=== PATIENT | male | born 1935 | race Caucasian/White ===

== ENCOUNTER → 2016-10-18 | Outpatient (REF) | payer MEDICARE ==
[2016-10-18 11:48] LABS: MEAN CORPUSCULAR HEMOGLOBIN 33.4 pg (27.0-33.0); MEAN CORPUSCULAR HGB CONC 33.4 g/dl (32.0-36.5); MEAN CORPUSCULAR VOLUME 99.9 fl (80.0-96.0)
[2016-10-18 11:54] LABS: ALBUMIN 3.7 GM/DL (3.2-5.2); ALBUMIN/GLOBULIN RATIO 1.09 (1.00-1.93); BILIRUBIN,TOTAL 0.4 MG/DL (0.2-1.0); CALCIUM LEVEL 8.5 MG/DL (8.8-10.2); CREATININE FOR GFR 1.38 MG/DL (0.70-1.30); GLOMERULAR FILTRATION RATE 52.5 (>35); POTASSIUM SERUM 4.4 MEQ/L (3.5-5.1); TOTAL PROTEIN 7.1 GM/DL (6.4-8.2)
== END ==
LOC: M SFHCCLAY 08:12
PROVIDERS: ATTEND Nurse Practitioner Family
DX: E11.22 Type 2 diabetes mellitus with diabetic chronic kidney disease (principal); I10 Essential (primary) hypertension; E78.4 Other hyperlipidemia; E55.9 Vitamin D deficiency, unspecified

== ENCOUNTER 2017-02-15 07:15 | Day surgery (SDC) | payer MEDICARE ==
[~2017-02-15] VITALS: Ht 162.6 cm; Wt 87.1 kg
[~2017-02-15 07:15] MED LIST: ASPI81TA85 PO; FURO40TA2 PO; LOSA100T36 PO; METO1TAB87 PO; MIDAZOLAM INJ 2 MG/2 ML VIAL (J2250) As Ordered ONE; SIMV40TA2 PO; fentaNYL 100 MCG/2 ML INJECTION (J3010) As Ordered ONE
[2017-02-15] MEDS ORDERED: LR 500 ML IV SCH (07:30)
[2017-02-15] MEDS ORDERED: PROPARACAINE 0.5% OPHTH SOL 15ML OD ONE (08:00)
[2017-02-15] MEDS ORDERED: OFLOXACIN 0.3 % (OCUFLOX) OPTH SOL 5ML OD ONE (08:00)
[2017-02-15] MEDS ORDERED: PHENYLEPHRINE 2.5% OPHTH SOL 2ML OD ONE (08:00)
[2017-02-15] MEDS ORDERED: TROPICAMIDE 1% OPHTH SOLN 2ML OD ONE (08:00)
[2017-02-15] MEDS ORDERED: DUOVISC (0.50ML VISCOAT/0.55ML PROVISC) OPHTH KIT As Ordered ONE (08:31)
[2017-02-15] MEDS ORDERED: CEFUROXIME 1MG/0.1ML INTRACAMERAL INJ As Ordered ONE (08:31)
[2017-02-15] MEDS ORDERED: BALANCED SALT IRRIGATION SOLUTION 500ML BAG (FOR OR EYE MACHINE) As Ordered ONE (08:31)
[2017-02-15] MEDS ORDERED: POVIDONE-IODINE 5% OPHTH PREP SOL 30ML As Ordered ONE (08:31)
[2017-02-15] MEDS ORDERED: LIDOCAINE 0.75%/EPINEPHRINE 0.025% IN BSS 1ML SYR INTRACAMERAL (OR ONLY) As Ordered ONE (08:31)
[2017-02-15] MEDS ORDERED: ACETYLCHOLINE OPHTH SOLN 1% 2ML (MIOCHOL-E) As Ordered ONE (08:31)
[2017-02-15] MEDS ORDERED: TETRACAINE 0.5% OPHTH SOLN 4ML As Ordered ONE (08:38)
[2017-02-15 09:20] VITALS: BP 141/65
[2017-02-15] MEDS ORDERED: ACETAMINOPHEN TAB 650MG DOSE (2X325MG) PO PRN (09:30)
[2017-02-15] MEDS ORDERED: LR 1,000 ML IV SCH (09:30)
--- NOTE | 2017-02-16 15:04 | RO ---
DATE OF PROCEDURE: 02/15/2017 PREOPERATIVE DIAGNOSES: 1. Dense visually significant nuclear sclerotic catarac, right eye. 2. Small pupil, right eye. POSTOPERATIVE DIAGNOSES: 1. Dense visually significant nuclear sclerotic cataract, right eye. 2. Small pupil, right eye. 3. Intraoperative floppy iris syndrome, right eye. 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 POSTOPERATIVE CONDITION: Stable. INDICATION FOR SURGERY: Blurred vision right eye affecting patient's activities of daily living. DESCRIPTION OF PROCEDURE: The patient was seen in the preoperative area and properly identified. The correct operative eye was identified and marked. Attention was turned to that eye. The patient received optical antibiotics in the preoperative area. The patient then received topical dilating drops consisting of tropicamide and phenylephrine. The patient was then transferred to the operating room. The correct side was reidentified. The patient received topical anesthetics and antibiotics on the surface of the eye. The eye was prepped and draped in a sterile fashion. The upper and lower eyelids were isolated with Tegaderm tape, and the lids were held open with an adjustable speculum. Using a sideport blade, a paracentesis incision was made. Viscoelastic was then injected into the anterior chamber through the paracentesis. A 7mm Malyugin ring was placed. A continuous curvilinear capsulorrhexis was created with the aid of a 26-gauge cystotome and Utrata forceps. Hydrodissection was performed with BSS on a blunt cannula until the nucleus was freely mobile. The crystalline lens was phacoemulsified and aspirated. Additional cohesive viscoelastic was placed into the capsular bag to deepen it. AU00T0, 20.0 lens was placed into the capsular bag and confirmed by visualizing the continuous curvilinear capsulorrhexis. Additional irrigation and aspiration was used to remove cortical material. The Malyugin ring was removed from the eye, and irrigation and aspiration was then used removing the remaining viscoelastic. The Malyugin ring was removed. The clear corneal incision was hydrated with BSS on a blunt cannula. The lens was well positioned. The incisions were then tested for leaks and found to be negative. The eye was then palpated for appropriate pressure and adjusted accordingly with BSS. Several drops of antibiotics and Iopidine were placed in the eye. The eyelid speculum was then carefully removed. A shield was placed. The patient tolerated the procedure well and was discharged to the recovery unit in a stable condition. MARGIE
== END 2017-02-15 09:43 | disposition home or self-care (01) ==
LOC: M SDC 07:15
PROVIDERS: ATTEND Ophthalmology
DX: H25.11 Age-related nuclear cataract, right eye (principal); H21.81 Floppy iris syndrome; H21.561 Pupillary abnormality, right eye; I10 Essential (primary) hypertension; E78.5 Hyperlipidemia, unspecified; Z79.82 Long term (current) use of aspirin; Z88.8 Allergy status to other drugs, medicaments and biological substances; Z79.899 Other long term (current) drug therapy; Z87.891 Personal history of nicotine dependence
CPT/HCPCS: 66982; J2250; J3010; V2632

== ENCOUNTER → 2017-04-17 | Outpatient (REF) | payer MEDICARE ==
[~2017-04-17] MED LIST changes: -MIDAZOLAM INJ 2 MG/2 ML VIAL (J2250) As Ordered ONE; -fentaNYL 100 MCG/2 ML INJECTION (J3010) As Ordered ONE
== END ==
LOC: M SFHCCLAY 08:02
PROVIDERS: ATTEND Nurse Practitioner Family
DX: E78.4 Other hyperlipidemia (principal); E11.22 Type 2 diabetes mellitus with diabetic chronic kidney disease

== ENCOUNTER → 2017-12-14 | Outpatient (REF) | payer MEDICARE | LOC: M SFHCCLAY 12:46 | DX: K65.1 Peritoneal abscess (principal) | CPT/HCPCS: 87186 ==

== ENCOUNTER → 2018-02-28 | Outpatient (CLI) | payer MEDICARE | LOC: M CLY 08:47 | DX: M41.26 Other idiopathic scoliosis, lumbar region (principal); M51.36 Other intervertebral disc degeneration, lumbar region; M16.11 Unilateral primary osteoarthritis, right hip; M54.5 Low back pain; M25.551 Pain in right hip | CPT/HCPCS: 72114 ==

== ENCOUNTER → 2018-04-08 | Outpatient (REF) | payer MEDICARE ==
[2018-04-08 17:53] LABS: ALBUMIN 4.1 GM/DL (3.2-5.2); ANION GAP 6 MEQ/L (8-16); BLOOD UREA NITROGEN 28 MG/DL (7-18); CARBON DIOXIDE LEVEL 32 MEQ/L (21-32); CHLORIDE LEVEL 102 MEQ/L (98-107); CHOLESTEROL LEVEL 163 MG/DL (<200); CHOLESTEROL RISK RATIO 2.232 (<5); CREATININE FOR GFR 1.81 MG/DL (0.70-1.30); GLOMERULAR FILTRATION RATE 38.3 (>35); GLUCOSE, FASTING 116 MG/DL (70-100); HDL CHOLESTEROL 73 MG/DL (>40); LDL CHOLESTEROL 74 MG/DL (<100); NON-HDL-C 90 MG/DL; PHOSPHORUS LEVEL 3.4 MG/DL (2.5-4.9); POTASSIUM SERUM 4.3 MEQ/L (3.5-5.1); SODIUM LEVEL 140 MEQ/L (136-145); TRIGLYCERIDES LEVEL 82 MG/DL (<150)
[2018-04-08 18:04] LABS: TOTAL 25(OH) VITAMIN D 40.2 NG/ML (30.0-100.0)
[2018-04-08 18:23] LABS: ESTIMATED AVERAGE GLUCOSE 120 MG/DL (60-110); HEMOGLOBIN A1c 5.8 %
== END ==
LOC: M SFHCCLAY 10:01
DX: E11.22 Type 2 diabetes mellitus with diabetic chronic kidney disease (principal); E78.49 Other hyperlipidemia; N18.9 Chronic kidney disease, unspecified; E55.9 Vitamin D deficiency, unspecified
CPT/HCPCS: 80069

== ENCOUNTER → 2018-04-09 | Outpatient (CLI) | payer MEDICARE ==
[~2018-04-09] MED LIST changes: +LOSA-4 PO; -LOSA100T36 PO
--- NOTE | 2018-04-10 09:02 | REP ---
MRI lumbar spine without contrast: History: Ankylosing hyperostosis. Forestier disease. DISH. Comparison lumbar spine radiographs are from February 28, 2018. Technique: Sagittal and axial T1 and T2-weighted scans are acquired in the usual fashion with and without fat saturation. Sequences include spin echo, turbo spin-echo, and STIR imaging sequences. MRI findings: Lumbar vertebral body heights are preserved. There is some straightening. A dextroconvex curvature is seen. There is a hemangioma on the right side of the L1 vertebral body. There are marrow changes associated with degenerative disc disease on either side of the L2-3 disc. Cortical and medullary bone signal intensity are otherwise normal. Conus medullaris is normal in position and appearance at T12. No extravertebral abnormality is observed. Axial and sagittal images taken at the L1-2 disc level demonstrate mild diffuse disc bulging. No central canal stenosis or neural foraminal encroachment. At L2-3, there is moderate diffuse disc bulging effacing the ventral margin of the thecal sac and contributing to mild central canal stenosis along with developmentally short pedicles and mild ligamentum flavum hypertrophy. Midline AP dimension of the thecal sac at this level is 10 mm. The thecal sac has a slightly triangular configuration. No neural foraminal narrowing. At L3-4, there is also diffuse mild to moderate disc bulging effacing the ventral margin of the thecal sac. There is central canal stenosis mild in degree at this level as well. Mid sagittal AP dimension of the thecal sac is 9 mm. There is facet hypertrophy and mild ligamentum hypertrophy along with developmentally short pedicles. There is mild narrowing of the neural foramina bilaterally. At L4-5, there is moderate diffuse disc bulging. There is moderate central canal stenosis effacing the CSF signal intensity on T2-weighted scans within the thecal sac. Mid sagittal dimension of the thecal sac is 6.7 mm at this level in the midline. There is advanced facet hypertrophy and ligamentum flavum hypertrophy contributing to the spinal stenosis along with developmentally short pedicles. There is moderate left and minimal right-sided neural foraminal narrowing at L4-5. At L5-S1, there is moderate facet hypertrophy bilaterally, right more so than left. The right-sided facet hypertrophy produces compression of the right S1 nerve root as it leaves the thecal sac. The left-sided neural foramen shows no encroachment. Impression: Fairly advanced degenerative spondylosis. Multilevel central canal stenosis most pronounced at L4-5. Multilevel neural foraminal narrowing as above. Electronically Signed by Shubham Petersen MD 04/10/2018 09:53 A
== END ==
LOC: M RAD 17:42
PROVIDERS: ATTEND Orthopaedic Surgery Sports Medicine
DX: M51.26 Other intervertebral disc displacement, lumbar region (principal); M48.07 Spinal stenosis, lumbosacral region; M53.88 Other specified dorsopathies, sacral and sacrococcygeal region; M48.17 Ankylosing hyperostosis [Forestier], lumbosacral region
CPT/HCPCS: 72148; G0463

== ENCOUNTER → 2018-05-28 | Outpatient (REF) | payer MEDICARE ==
[~2018-05-28] MED LIST changes: -LOSA-4 PO; +LOSA100T50 PO
[2018-05-28 17:37] LABS: COMPLEMENT C3 123 MG/DL (90-180); COMPLEMENT C4 24 MG/DL (10-40); TOTAL PROTEIN,RANDOM URINE 97.9 MG/DL (0.0-12.0); URINE TOTAL PROTEIN 97.9 MG/DL (0-12)
[2018-05-30 15:03] LABS: UPEP INTERPRETATION NO M-SPIKE NOTED; URINE VOLUME RANDOM ML
[2018-06-01 00:07] LABS: ANCA-ATYPICAL <1:20 titer (Neg:<1:20); ANTI DOUBLE STRAND-DNA AB <1 IU/mL (0-9); ANTI-GLOMERULAR BASEMENT MEMB 3 units (0-20); CYTOPLASMIC NEUTROP AB ANCA-C <1:20 titer (Neg:<1:20); PERINUCLEAR AB ANCA-P <1:20 titer (Neg:<1:20)
== END ==
LOC: M LAB REF 16:47
PROVIDERS: ATTEND Internal Medicine Nephrology
DX: R80.9 Proteinuria, unspecified (principal)

== ENCOUNTER → 2018-06-21 | Outpatient (CLI) | payer MEDICARE ==
--- NOTE | 2018-06-21 13:40 | REP ---
Renal ultrasound: Comparison is 01/11/2012. The right kidney measures 9.4 x 5.6 x 5.3 cm. The left kidney measures 10.0 x 5.5 x 6.0 cm. Renal cortical mg echogenicity is normal bilaterally. There is no hydronephrosis on the right on the left. There are is atheromatous calcification in the renal vessels versus nonobstructive calculi bilaterally. There are two right renal cysts in the upper pole, one measuring 1.4 cm and the other measuring 2.3 cm. There are two cysts in the left kidney one at the mid pole measuring 2.2 cm and the other at the lower pole measuring 1.9 cm. No solid renal masses are identified. Bladder ultrasound: The bladder is incompletely distended and cannot be further evaluated. Impression: There are two cysts in each kidney. There are bilateral renal calcifications, nonspecific, vascular atheromatous calcifications versus nonobstructive renal calculi. No hydronephrosis. No solid masses. Electronically Signed by Ezra Sanchez MD 06/21/2018 01:32 P
== END ==
LOC: M RAD 11:27
PROVIDERS: ATTEND Internal Medicine Nephrology
DX: N18.3 Chronic kidney disease, stage 3 (moderate) (principal)

== ENCOUNTER → 2018-07-09 | Outpatient (REF) | payer MEDICARE ==
[2018-07-09 17:36] LABS: MAU/CREAT RATIO 207.8 MCG/MG (0.0-30.0)
== END ==
LOC: M SFHCCLAY 13:19
PROVIDERS: ATTEND Nurse Practitioner Family
DX: E11.22 Type 2 diabetes mellitus with diabetic chronic kidney disease (principal)

== ENCOUNTER → 2018-11-28 | Outpatient (REF) | payer MEDICARE ==
[2018-11-28 18:34] LABS: FOLATE > 24.0 NG/ML (>5.4); VITAMIN B12 LEVEL 515 PG/ML (247-911)
== END ==
LOC: M LAB REF 17:22
PROVIDERS: ATTEND Nurse Practitioner Family
DX: D64.9 Anemia, unspecified (principal)

== ENCOUNTER → 2018-12-10 | Outpatient (REF) | payer MEDICARE ==
[2018-12-10 13:05] LABS: HEMATOCRIT 40.5 % (42.0-52.0); HEMOGLOBIN 13.5 g/dl (13.5-17.5); MEAN CORPUSCULAR HEMOGLOBIN 34.9 pg (27.0-33.0); MEAN CORPUSCULAR HGB CONC 33.3 g/dl (32.0-36.5); MEAN CORPUSCULAR VOLUME 104.7 fl (80.0-96.0); PLATELET COUNT, AUTOMATED 144 10^3/uL (150-450); RED BLOOD COUNT 3.87 10^6/uL (4.30-6.10); WHITE BLOOD COUNT 5.6 10^3/uL (4.0-10.0)
[2018-12-10 13:25] LABS: ALBUMIN 3.8 GM/DL (3.2-5.2); BILIRUBIN,TOTAL 0.6 MG/DL (0.2-1.0); CALCIUM LEVEL 8.4 MG/DL (8.8-10.2); CHOLESTEROL RISK RATIO 1.985 (<5); CREATININE FOR GFR 1.43 MG/DL (0.70-1.30); GLOMERULAR FILTRATION RATE 50.2 (>35); POTASSIUM SERUM 3.9 MEQ/L (3.5-5.1); TOTAL 25(OH) VITAMIN D 34.2 NG/ML (30.0-100.0)
[2018-12-10 13:44] LABS: HEMOGLOBIN A1c 5.7 %
== END ==
LOC: M SFHCCLAY 08:09
PROVIDERS: ATTEND Nurse Practitioner Family
DX: I10 Essential (primary) hypertension (principal); E11.22 Type 2 diabetes mellitus with diabetic chronic kidney disease; E78.49 Other hyperlipidemia; E55.9 Vitamin D deficiency, unspecified

== ENCOUNTER → 2019-03-14 | Outpatient (REF) | payer MEDICARE ==
[2019-03-14 16:54] LABS: HEMATOCRIT 42.3 % (42.0-52.0); HEMOGLOBIN 13.5 g/dl (13.5-17.5); MEAN CORPUSCULAR HEMOGLOBIN 32.8 pg (27.0-33.0); MEAN CORPUSCULAR HGB CONC 31.9 g/dl (32.0-36.5); MEAN CORPUSCULAR VOLUME 102.7 fl (80.0-96.0); PLATELET COUNT, AUTOMATED 201 10^3/uL (150-450); RED BLOOD COUNT 4.12 10^6/uL (4.30-6.10); WHITE BLOOD COUNT 5.5 10^3/uL (4.0-10.0)
[2019-03-14 16:57] LABS: CHOLESTEROL RISK RATIO 2.611 (<5)
[2019-03-14 17:05] LABS: TOTAL 25(OH) VITAMIN D 27.3 NG/ML (30.0-100.0)
[2019-03-14 17:26] LABS: CREATININE, URINE 20.4 MG/DL; MAU/CREAT RATIO 573.5 MCG/MG (0.0-30.0)
[2019-03-14 17:32] LABS: HEMOGLOBIN A1c 5.1 %
== END ==
LOC: M SFHCCLAY 12:59
PROVIDERS: ATTEND Nurse Practitioner Family
DX: E11.22 Type 2 diabetes mellitus with diabetic chronic kidney disease (principal); E78.49 Other hyperlipidemia; E55.9 Vitamin D deficiency, unspecified

== ENCOUNTER → 2019-07-15 | Outpatient (REF) | payer MEDICARE ==
[~2019-07-15] MED LIST changes: -SIMV40TA2 PO; +SIMV40TA20 PO
[2019-07-15 11:39] LABS: HEMATOCRIT 40.7 % (42.0-52.0); HEMOGLOBIN 13.2 g/dl (13.5-17.5); MEAN CORPUSCULAR HEMOGLOBIN 33.3 pg (27.0-33.0); MEAN CORPUSCULAR HGB CONC 32.4 g/dl (32.0-36.5); MEAN CORPUSCULAR VOLUME 102.8 fl (80.0-96.0); PLATELET COUNT, AUTOMATED 190 10^3/uL (150-450); RED BLOOD COUNT 3.96 10^6/uL (4.30-6.10); WHITE BLOOD COUNT 5.5 10^3/uL (4.0-10.0)
[2019-07-15 11:44] LABS: ALBUMIN 3.8 GM/DL (3.2-5.2); BILIRUBIN,TOTAL 0.6 MG/DL (0.2-1.0); CALCIUM LEVEL 8.9 MG/DL (8.8-10.2); CHOLESTEROL RISK RATIO 1.928 (<5); CREATININE FOR GFR 1.54 MG/DL (0.70-1.30); GLOMERULAR FILTRATION RATE 45.9 (>35); POTASSIUM SERUM 3.8 MEQ/L (3.5-5.1); TOTAL PROTEIN 7.5 GM/DL (6.4-8.2)
[2019-07-15 11:49] LABS: TOTAL 25(OH) VITAMIN D 38.7 NG/ML (30.0-100.0)
[2019-07-15 19:27] LABS: HEMOGLOBIN A1c 4.9 %
== END ==
LOC: M SFHCCLAY 09:07
PROVIDERS: ATTEND Nurse Practitioner Family
DX: I10 Essential (primary) hypertension (principal); E11.22 Type 2 diabetes mellitus with diabetic chronic kidney disease; E78.5 Hyperlipidemia, unspecified; E55.9 Vitamin D deficiency, unspecified; Z79.899 Other long term (current) drug therapy

== ENCOUNTER → 2020-05-25 | Outpatient (REF) | payer MEDICARE ==
[~2020-05-25] MED LIST changes: -ASPI81TA85 PO; +ASPI81TA86 PO
[2020-05-26 12:00] LABS: HEMATOCRIT 41.1 % (42.0-52.0); MEAN CORPUSCULAR HEMOGLOBIN 33.1 pg (27.0-33.0); MEAN CORPUSCULAR HGB CONC 31.6 g/dl (32.0-36.5); MEAN CORPUSCULAR VOLUME 104.6 fl (80.0-96.0); PLATELET COUNT, AUTOMATED 223 10^3/uL (150-450); RED BLOOD COUNT 3.93 10^6/uL (4.30-6.10); WHITE BLOOD COUNT 9.6 10^3/uL (4.0-10.0)
[2020-05-26 12:10] LABS: APPEARANCE, URINE CLOUDY (CLEAR); BACTERIA, URINE AUTO NEGATIVE (NEGATIVE); BILIRUBIN, URINE AUTO NEGATIVE (NEGATIVE); BLOOD, URINE BLOOD NEGATIVE (NEGATIVE); CALCIUM OXALATE CRYSTALS LARGE; COLOR, URINE YELLOW (YELLOW); GLUCOSE, URINE (UA) AUTO NEGATIVE (NEGATIVE); GRANULAR CAST, URINE AUTO 4 /LPF; KETONE, URINE AUTO TRACE mg/dL (NEGATIVE); LEUKOCYTE ESTERASE, URINE AUTO 1+ (NEGATIVE); MUCUS, URINE SMALL (NEGATIVE); NITRITE, URINE AUTO NEGATIVE (NEGATIVE); PROTEIN, URINE AUTO 2+ mg/dL (NEGATIVE); RBC, URINE AUTO 4 /HPF (0-3); SPECIFIC GRAVITY URINE AUTO 1.019 (1.002-1.035); SQUAMOUS EPITHELIAL CELL UR AU 0 /HPF (0-6); WBC, URINE AUTO 87 /HPF (0-3)
[2020-05-26 12:30] LABS: CALCIUM LEVEL 9.4 MG/DL (8.8-10.2); CREATININE FOR GFR 2.29 MG/DL (0.70-1.30); PHOSPHORUS LEVEL 3.5 MG/DL (2.5-4.9); POTASSIUM SERUM 4.8 MEQ/L (3.5-5.1)
[2020-05-26 13:02] LABS: MAU/CREAT RATIO 211.6 MCG/MG (0.0-30.0)
== END ==
LOC: M LABDRAWC 11:19
PROVIDERS: ATTEND Nurse Practitioner Family
DX: N18.32 Chronic kidney disease, stage 3b (principal); D63.1 Anemia in chronic kidney disease; N25.81 Secondary hyperparathyroidism of renal origin; E11.22 Type 2 diabetes mellitus with diabetic chronic kidney disease

== ENCOUNTER 2020-06-21 15:21 | Inpatient (IN) | payer MEDICARE ==
[~2020-06-21] VITALS: Ht 167.6 cm; Wt 73.7 kg
--- NOTE | 2020-06-21 16:18 | REP ---
INDICATION: trauma. COMPARISON: None. TECHNIQUE: Helical scanning is acquired. 5 mm axial images were reformatted. Coronal MPR images were generated. FINDINGS: Digital home improvement installer images are unremarkable. There is a bandage over the left forehead. A nasal bone fracture is seen. No frontal sinus, orbital, or calvarial fracture is observed. No other area of scalp swelling is seen. There is prominent vascular calcification visible at the skull base. Mild to moderate generalized volume loss is seen. There is no evidence of intracranial hemorrhage. No infarct, hemorrhage, mass or midline shift is observed. Mild small vessel changes are seen. IMPRESSION: No acute intracranial abnormality. Nasal bone fracture. Left frontal scalp swelling and bandage. Vascular calcification and diffuse atrophy.. <Electronically signed by Eulalio Petersen > 06/21/20 [id number]
--- NOTE | 2020-06-21 16:20 | REP ---
INDICATION: trauma. COMPARISON: None. TECHNIQUE: Helical scanning is acquired and overlapping 2 mm high resolution axial images were generated and reviewed at bone and soft tissue window settings. Coronal and sagittal multiplanar re-formations images are generated. FINDINGS: There is no evidence of cervical spine element fracture. No skull base fracture is seen. Cervical vertebral body heights are preserved. Alignment is normal. Facet joints are normally aligned bilaterally at each cervical level on multiplanar re-formations images. There is no evidence of intraspinal or paraspinal hematoma. No extra vertebral abnormality is seen. There are degenerative spondylosis changes moderate in degree in the cervical spine. Degenerative disc and osteoarthritic facet disease is noted. 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 Fairly advanced vascular calcifications noted in the soft tissues of the neck. IMPRESSION: Degenerative spondylosis changes. No fracture or other acute bony abnormality.. <Electronically signed by Eulalio Petersen > 06/21/20 [id number]
--- NOTE | 2020-06-21 16:21 | REP ---
INDICATION: trauma. COMPARISON: NONE. TECHNIQUE: Helical scanning is acquired and 2 mm axial images re-formatted. Coronal MPR images are generated and reviewed. FINDINGS: Preliminary digital lathe hand radiographs are unremarkable. No mandibular fracture is seen. Zygomatic arches are intact bilaterally. The maxillary sinuses are clear. Frontal sinuses are clear. There is a slightly comminuted depressed nasal bone fracture. Inferior maxillary spine is intact. The maxilla is edentulous. Vascular calcification is noted. There is swelling of the anterior aspect of the right inferior nasal turbinates. Question hematoma versus nasal polyp. There is mild mucosal thickening in the ethmoid air cells. No orbital margin fracture is seen. No orbital hematoma is observed. There is a bandage over the left frontal region. IMPRESSION: Slightly comminuted depressed fracture of the nasal bone. There is soft tissue fullness of the anterior aspect of the right inferior nasal turbinates. Question hematoma versus polyp. No other facial fracture seen. <Electronically signed by Eulalio Petersen > 06/21/20 [id number]
[2020-06-21] MEDS ORDERED: LIDOCAINE W/EPINEPHRINE 1% 20ML VIAL SC ONE (16:30)
--- OUTSIDE RECORDS SUMMARY | 2020-06-21 16:34 | CCD ---
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 Name Role Phone Mike MICHELLE, FACS, Abdulkadir Erwin Unavailable [phone] Aicha Doyle PP [phone] Reason for Referral No Reason for Referral Recorded Problems Includes: Active, inactive, and resolved Problems All Visits Onset Date - Time Resolved Date - Time Provider Co ndition Status Macular Degen Nonexud L Eye Adv Atrophic with Subfovea l Involvement 03/31/2020 - 12:00AM Mateus Roth DO Active Macular Degeneration Nonexudative Right Eye Intermedia te Dry Stage 03/31/2020 - 12:00AM Mateus Roth DO Active Diabetes Mellitus Type 2 Without Complication 10/25/2018 - 12:00 AM Mateus Roth DO Active History of Nicotine Dependence 10/25/2018 - 12:00AM Jose Roth DO Active Essential Hypertension 10/25/2018 - 12:00AM Mateus granado DO Active Pseudophakia 10/25/2018 - 12:00AM Mateus Roth DO Active 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 06/11/2018 - 12:00AM Mateus Roth DO Inactive Posterior Capsule Opacification Left Eye 11/10/2014 - 12:00AM Abdulkadir Atkins MD, FACS Inactive Note: Unchanged Type 2 Diab W/ Diab Retinopathy Mild Nonprolif Without Macular Edema 11/10/2014 - 12:00AM Unknown - Unknown Mateus Roth DO Resolved Note: Unchanged - of the rig ht eye Posterior Capsule Opacification Not Obscuring Vision 11/10/2014 - 12:00AM Abdulkadir Mckeon MD, FACS Inactive Note: Unchanged Borderline Glaucoma Ocular Hypertension Both Eyes 10/14/2014 - 1 2:00AM Abdulkaidr Mckeon MD, FACS Active Note: Unchanged Macular Degeneration Nonexudative Dry 02/16/2014 - 12:00AM Mateus Roth DO Inactive Note: Unchanged - of both ey es Benign Neoplasm of Choroidal Nevus 02/16/2014 - 12:00AM Mateus Roth DO Active Note: Unchanged - of the lef t eye Cataract Senile Cortical 02/16/2014 - 12:00AM Unknown - Unknown Mateus Roth DO Resolved Note: Unchanged - of the rig ht eye Diabetes Mellitus Secondary with Ophthalmic Manifestations 1 - 12:00AM Mateus Roth DO Inactive Note: Unchanged Diabetes with Diabetic Retinopathy Nonproliferative Mi ld Right Eye 02/16/2014 - 12:00AM Abdulkadir Mckeon MD, FACS Inactive Note: Unchanged Skin Neoplasm Eyelid Left Upper 02/16/2014 - :00AM Abdulkadir Mckeon MD, FACS Inactive Note: Unchanged Skin Neoplasm Eyelid Right Upper 02/16/2014 - 12:00AM Abdulkadir Mckeon MD, FACS Inactive Note: Unchanged Benign Neoplasm Eyelid 12/09/2012 - :00AM Abdulkadir Almeida MD, FACS Active Note: Unchanged - of both up per eyelids Cataract Senile Cortical Anterior 12/09/2012 - :00AM Abdulkadir Mckeon MD, FACS Inactive Note: Unchanged - of the rig ht eye Dermatochalasis Both Eyelids 12/09/2012 - :00AM Abdulkadir Mckeon MD, FACS Active Note: Unchanged Retinopathy Hypertensive Both Eyes 12/09/2012 - :00AM Abdulkadir Mckeon MD, FACS Active Note: Unchanged Seborrheic Keratosis 12/09/2012 - :00AM Abdulkadir Dumont MD, FACS Active Note: Unchanged - Medially o f the upper right eyelid- 4 mm Cataract Senile Nuclear 12/09/2012 - 12:00AM Unknown - Unknown Walt Roth DO Resolved Note: Unchanged - of the rig ht eye Dry Eye Syndrome Both Eyes 12/09/2012 - 12:00AM Abdulkadir Mckeon MD, FACS Active Note: Unchanged Vitreous Floaters Both Eyes 12/09/2012 - 12:00AM Abdulkadir Mckeon MD, FACS Active Note: Unchanged Plan of Treatment Referrals To Diagnosis Referral to Dr. Gonzalez Mckeon MD, FACS Age-r elated nuclear cataract, right eye Findings Encounter Date Requested Referred to: Dr. 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 1 Year Follow-Up with Mateus Roth DO 07/07/2019 Dry eye syndrome of both eyes 1 Year Follow-Up with Mateus Roth DO 07/07/2019 Essential hypertension 1 Year Follow-Up with Mateus stevens DO 07/07/2019 History of nicotine dependence 1 Year Follow-Up with Mateus Roth DO 07/07/2019 Intermediate dry stage nonexudative macular degenerati on of right eye 1 Year Follow-Up with Mateus Roth DO 07/07/2019 Pseudophakia 1 Year Follow-Up with Mateus Gonzalez DO 07/07/2019 Type 2 diabetes mellitus without complication 1 Year F ollow-Up with Mateus Roth DO 07/07/2019 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 6 Month Follow-Up with Mateus Roth DO 06/04/2018 Dry eye syndrome of both eyes 6 Month Follow-Up with Mateus Gonzalez DO 06/04/2018 Essential hypertension 6 Month Follow-Up with Mateus da silva DO 06/04/2018 History of nicotine dependence 6 Month Follow-Up with Portillo underwood Gonzalez DO 06/04/2018 Intermediate dry stage nonexudative macular degenerati on of both eyes 6 Month Follow-Up with Mateus Gonzalez DO 06/04/2018 Type 2 diabetes mellitus without complication 6 Month Follow-Up with Mateus Cantrellstein DO 06/04/2018 Essential hypertension 8 Month Follow-Up and Testing with Jose russell Gonzalez DO 11/28/2017 History of nicotine dependence 8 Month Follow-Up and T esting with Mateus Cantrellstein DO 11/28/2017 Intermediate dry stage nonexudative macular degenerati on of both eyes 8 Month Follow-Up and Testing with Mateus Roth DO 11/28/2017 Pseudophakia 8 Month Follow-Up and Testing with Lianna Roth DO 11/28/2017 Type 2 diabetes mellitus without complication 8 Month Follow-Up and Testing with Mateus Roth DO 11/28/2017 Pseudophakia 3 - 4 WK Post CAT SX with Mateus Patterson rekha DO 03/20/2017 Pseudophakia 1 Day Post OP with Mateus Roth DO 02/16/2017 Nuclear senile cataract PRE OP WITH TESTING with Mateus leary DO 02/06/2017 Arcus senilis was observed CATARACT EVAL - REFERRAL FR DR. RICKETTS with Mateus Gonzalez DO 11/14/2016 Dry eye syndrome CATARACT EVAL - REFERRAL FR DR. RICKETTS with Mateus Roth DO 11/14/2016 Nuclear senile cataract CATARACT EVAL - REFERRAL FR DR. RICKETTS with Matues Gonzalez DO 11/14/2016 Type 2 diabetes mellitus without complication CATARACT EVAL - REFERRAL FR DR. RICKETTS with Mateus Gonzalez DO 11/14/2016 Vitreous degeneration CATARACT EVAL - REFERRAL FR DR. 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 9 Month Follow-Up with Abdulkadir Mckeon MD, FACS 10/11/2015 Cortical senile cataract 9 Month Follow-Up with Abdulkadir Dumont MD, FACS 10/11/2015 Essential hypertension 9 Month Follow-Up with Abdulkadir Barnard MD, FACS 10/11/2015 History of nicotine dependence 9 Month Follow-Up with Abdulkadir Mckeon MD, FACS 10/11/2015 Nonexudative age-related macular degeneration of both eyes 9 Month Follow-Up with Abdulkadir Mckeon MD, FACS 10/11/2015 Nuclear senile cataract 9 Month Follow-Up with Abdulkadir Pagan MD, FACS 10/11/2015 Posterior capsule opacification of eccentric capsule i n the left eye 9 Month Follow-Up with Abdulkadir Mckeon MD, FACS 10/11/2015 Pseudophakia 9 Month Follow-Up with Abdulkadir jon MD, FACS 10/11/2015 Type 2 diabetes mellitus with mild nonpr oliferative diabetic retinopathy without macular edema of the right eye 9 Month Follow-Up with Abdulkadir jon MD, FACS 10/11/2015 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 I OP CHECK WITH TESTING with Abdulkadir Mckeon MD, FACS 01/28/2015 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 9 Month Follow-Up with Abdulkadir Mckeon MD, FACS 10/14/2014 Dry eye syndrome of both eyes 9 Month Follow-Up with Marian Mckeon MD, FACS 10/14/2014 Dry nonexudative macular degeneration both eyes 9 Mon th Follow-Up with Abdulkadir Mckeon MD, FACS 10/14/2014 Hypertensive retinopathy of both eyes 9 Month Follow-U p with Abdulkadir Mckeon MD, FACS 10/14/2014 No rubeosis iridis of both eyes 9 Month Follow-Up with Abdulkadir Mckeon MD, FACS 10/14/2014 Nuclear senile cataract right eye 9 Month Follow-Up w ith Abdulkadir Mckeon MD, FACS 10/14/2014 Posterior capsule opacification in the left eye 9 Adam h Follow-Up with Abdulkadir Mckeon MD, FACS 10/14/2014 Posterior capsule opacification not obscuring vision 9 Month Follow-Up with Abdulkadir Mckeon MD, FACS 10/14/2014 Right cortical senile cataract 9 Month Follow-Up with Abdulkadir Mckeon MD, FACS 10/14/2014 Secondary diabetes mellitus with ophthalmic manifestat ions 9 Month Follow-Up with Abdulkadir Mckeon MD, FACS 10/14/2014 Type 2 diabetes with mild nonproliferati ve diabetic retinopathy without macular edema right eye 9 Month Follow-Up with Abdulkadir Mckeon MD, FACS Vitreous floaters in both eyes 9 Month Follow-Up with Abdulkadir Mckeon MD, FACS 10/14/2014 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 1 Year Follow-Up with Abdulkadir Mckeon MD, FACS 02/16/2014 Cortical senile cataract right eye 1 Year Follow-Up w ith Abdulkadir Mckeon MD, FACS 02/16/2014 Dermatochalasis of both eyes upper and lower 1 Year F ollow-Up with Abdulkadir Mckeon MD, FACS 02/16/2014 Dry eye syndrome of both eyes 1 Year Follow-Up with Juan M Mckeon MD, FACS 02/16/2014 Dry nonexudative macular degeneration both eyes 1 Yea r Follow-Up with Abdulkadir Mckeon MD, FACS 02/16/2014 Hypertensive retinopathy of both eyes 1 Year Follow-Up with Abdulkadir Mckeon MD, FACS 02/16/2014 Mild nonproliferative diabetic retinopathy of the righ t eye 1 Year Follow-Up with Abdulkadir Mckeon MD, FACS 02/16/2014 No diabetic macular edema 1 Year Follow-Up with Abdulkadir Dumont MD, FACS 02/16/2014 No rubeosis iridis 1 Year Follow-Up with Abdulkadir underwood MD, FACS 02/16/2014 Nuclear senile cataract right eye 1 Year Follow-Up wi th Abdulkadir Mckeon MD, FACS 02/16/2014 Seborrheic keratosis upper right eyelid 1 Year Follow -Up with Abdulkadir Atkins MD, FACS 02/16/2014 Secondary diabetes mellitus with ophthalmic manifestat ions 1 Year Follow-Up with Abdulkadir Mckeon MD, FACS 02/16/2014 Skin neoplasm of the left upper eyelid 1 Year Follow-U p with Abdulkadir Mckeon MD, FACS 02/16/2014 Skin neoplasm of the right upper eyelid 1 Year Follow- Up with Abdulkadir Atkins MD, FACS 02/16/2014 Vitreous floaters in both eyes 1 Year Follow-Up with Marian Mckeon MD, FACS 02/16/2014 Anterior cortical senile cataract of the right eye 1 Year Follow-Up with Abdulkadir Mckeon MD, FACS 12/09/2012 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 1 Year Follow-Up with Abdulkadir Mckeon MD, FACS 12/09/2012 Dermatochalasis of both eyes 1 Year Follow-Up with Abdulkadir Mckeon MD, FACS 12/09/2012 Dry eye syndrome of both eyes 1 Year Follow-Up with Juan M Mckeon MD, FACS 12/09/2012 Hypertensive retinopathy of both eyes 1 Year Follow-Up with Abdulkadir Mckeon MD, FACS 12/09/2012 No diabetic macular edema 1 Year Follow-Up with Abdulkadir Dumont MD, FACS 12/09/2012 No diabetic retinopathy 1 Year Follow-Up with Abdulkadir Barnard MD, FACS 12/09/2012 No rubeosis iridis of both eyes 1 Year Follow-Up with Abdulkadir Mckeon MD, FACS 12/09/2012 Nuclear senile cataract of the right eye 1 Year Follo w-Up with Abdulkadir Atkins MD, FACS 12/09/2012 Seborrheic keratosis Medially of the upper right eyel id- 4 mm 1 Year Follow-Up with Abdulkadir Mckeon MD, FACS 12/09/2012 Type 2 diabetes mellitus 1 Year Follow-Up with Abdulkadir Pagan MD, FACS 12/09/2012 Vitreous floaters in both eyes 1 Year Follow-Up with Marian Mckeon MD, FACS 12/09/2012 Instructions Instructions not supported for this document typeNo Instructions Recorded Medical Equipment - Implanted Devices Includes: Current and historical DevicesNo Medical Equipment Recorded Medications Includes: Current and historical Medications Current Medications (continue as prescribed) Lotemax SM 0.38% Ophthalmic Gel 07/07/2019 Provider : Mateus Roth DO Diagnosis: Dry eye syndrome of bilateral lacrimal glands One drop twice a day in both eyes Restasis Multidose 0.05% Ophthalmic Emulsion 10/29/2017 Provider: Mateus Roth DO Diagnosis: Dry eye syndrome of bilateral lacrimal glands One drop twice a day in both eyes PreserVision AREDS Capsule, conventional 10/11/2015 Provider: Diagnosis: Centrum Silver Ultra Mens OR TABS 12/09/2012 Provid er: Diagnosis: Caltrate 600 1500 (600 Ca) MG OR TABS 12/09/2012 Pr ovider: Diagnosis: Paula Low Dose 81 MG OR TBEC 12/09/2012 Provider: Diagnosis: Atenolol 25 MG OR TABS 12/09/2012 Provider: Diagnosis: Furosemide 40 MG OR TABS 12/09/2012 Provider: Diagnosis: Losartan Potassium 100 MG OR TABS 12/09/2012 Provid er: Diagnosis: Simvastatin 20 MG OR TABS 12/09/2012 Provider: Diagnosis: Past Medications on file BromSite 0.075% Ophthalmic Solution 02/06/2017 - 03/08/2017 Provider: Mateus Roth DO Diagnosis: Age-related nuclear cataract, right eye three days prior to surgery start one drop two times a day i n the right eye Pred Forte 1% Ophthalmic Suspension 02/06/2017 - 03/08/2017 Provider: Mateus Roth DO Diagnosis: Age-related nuclear cataract, right eye day of surgery remove patch and start on e drop four times a day in the right eye Besivance 0.6% Ophthalmic Suspension 02/06/2017 - 03/08/2017 Provider: Mateus Roth DO Diagnosis: Age-related nuclear cataract, right eye three days prior to surgery start one drop three times a day in the right eye Restasis Multidose 0.05% Ophthalmic Emulsion 11/15/2016 - Provider: Mateus Roth DO Diagnosis: Dry eye syndrome of bilateral lacrimal glands One drop twice a day in both eyes Xiidra 5% Ophthalmic Solution 11/14/2016 - 03/20/2017 Provid er: Mateus Roth DO Diagnosis: Dry eye syndrome of bilateral lacrimal glands One drop twice a day in both eyes Medications Administered Includes: Administered Medications in patient's chartNo Administered Medications Recorded Vital Signs Includes: Vital Signs from 03/31/2019 through 03/31/2020No Vital Signs Recorded For Specified Dates Results Includes: Results from 03/31/2019 through 03/31/2020No Results Recorded For Specified Dates History of Present Illness History of Present Illness not supported for this document typeNo History of Present Illness Recorded Social History Description Last Updated No tobacco use 07/07/2019 Not using drugs 07/07/2019 Smoking status : Former smoker 07/07/2019 Alcohol use 2 ounces daily 10/25/2018 Previous smoking history 12/09/2012 Alcohol 12/09/2012 Procedures and Surgical History Includes: Procedures from 03/31/2019 through 03/31/2020 Procedures Code Diagnosis Performing Provider Service Location Service Date [facility], with interpretation and re port (WAIVER OF LIABILITY ON FILE (ABN)) [id number] Nexdtve age-rel mclr degn, l eye, adv atrpc w sbfvl involv, Essential (primary) hypertension, Personal history of nicotine dependence Mateus Camarena MD [facility] 07/07/2019 Comprehensive eye exam established patient (Signi/Sep Eval. & Man.) [id number] Nexdtve age-rel mclr degn, l eye, adv atrpc w sbfvl involv, Essential (primary) hypertension, Personal history of nicotine dependence, Type 2 diabetes mellitus without complications Mateus Camarena MD [facility] 07/07/2019 Surgical History Last Updated History of cataract surgery -PCIOL OS ~-PCIOL OD 02/04 06/[address] Roth 01/19/2020 Surgical / procedural history : Cyst rem [place] upper right arm, Metal removed from OS about 30 years ago 02/16/2014 Medical History Includes: Medical History in patient's chart Description Last Updated History of the retina was abnormal 06/04/2018 0 History of fundoscopic exam through dilated pupils was performed 11/28/2017 06/11/2018 History of type 2 diabetes mellitus Dx: 2008, A1C 6 with Aicha EVERETT in August 2017 , FBS was 120 yesterday 06/04/2018 History of hyperlipidemia 02/16/2014 No recent change in medical history 02/16/2014 Currently wearing eyeglasses 12/09/2012 History of hypertension 12/09/2012 Reported medical history 12/09/2012 Family History Includes: Family History in patient's chart Description Last Updated Fraternal history of diabetes mellitus 07/07/2019 Maternal history of hypertension 07/07/2019 Paternal history of diabetes mellitus 07/07/2019 Paternal history of hypertension 07/07/2019 Fraternal history of hypertension 10/14/2014 Review of Systems Review of Systems not supported for this document typeNo Review of Systems Recorded Mental Status Mental Status not supported for this document type Description Oriented to time, place, and person Functional Status Functional Status not supported for this document typeNo Functional Status Recorded Physical Exam Physical Exam not supported for this document typeNo Physical Exam Recorded Immunizations Includes: Immunizations in patient's chartNo Immunizations Recorded Allergies Includes: Active, inactive, and resolved AllergiesNo Known Allergies Encounters Includes: Encounters from 03/31/2019 through 03/31/2020 Encounter Provider Location Date Check-In Time Check-Out Time D iagnosis 1 Year Follow-Up Mateus Camarena MD [facility] 06/2019 2:46PM 4:18PM Dry Eye Syndrome Both Eyes, Diabetes Mellitus Type 2 Without Complication, Borderline Glaucoma Ocular Hypertension Both Eyes, Benign Neoplasm of Choroidal Nevus, Pseudophakia, Essential Hypertension, History of Nicotine Dependence, 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, 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 Insurance Includes: Active Insurance Policies Plan Name Member ID Group # Subscriber Relationship Effective Da akryn 1 - [employer] [id number] Gage Cortes Advance Directives Includes: Current Advance DirectivesNo Advance Directives Recorded Health Concerns Includes: Active Health ConcernsNo Active Health Concerns Recorded Goals Includes: Active GoalsNo Active Goals Recorded Interventions Includes: Interventions for active GoalsNo Interventions Recorded Evaluations & Outcomes Includes: Evaluations & Outcomes for active GoalsNo Outcomes Recorded
--- OUTSIDE RECORDS SUMMARY | 2020-06-21 16:34 | CCD ---
Author Author Abdulkadir Mckeon MD [facility] Organization Abdulkadir Mckeon MD [facility] Address [address] [address] Phone Care Team Providers Care Curtain Cleaner Name Role Phone Mike MICHELLE, CANDY, Abdulkadir Erwin Unavailable [phone] Aicha Doyle PP [phone] Reason for Referral No Reason for Referral Recorded Problems Includes: Active, inactive, and resolved Problems All Visits Onset Date - Time Resolved Date - Time Provider Co ndition Status Diabetes Mellitus Type 2 Without Complication 10/25/2018 - 12:00 AM Mateus Roth DO Active History of Nicotine Dependence 10/25/2018 - 12:00AM Jose ttlev Roth DO Active Essential Hypertension 10/25/2018 - 12:00AM Mateus granado DO Active Pseudophakia 10/25/2018 - 12:00AM Mateus Roth DO Active 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 06/11/2018 - 12:00AM Mateus Roth DO Active Posterior Capsule Opacification Left Eye 11/10/2014 - [...] Hypertension Both Eyes 10/14/2014 - 1 2:00AM Abdulkadir Mckeon MD, FACS Active Note: Unchanged Macular [...] Note: Unchanged Benign Neoplasm Eyelid 12/09/2012 - 12:00AM Abdulkadir Almeida MD, FACS Active Note: Unchanged - of both up per eyelids Cataract Senile Cortical Anterior 12/09/2012 - :00AM Abdulkadir Mckeon MD, FACS Inactive Note: Unchanged - of the rig ht eye Dermatochalasis Both Eyelids 12/09/2012 - :00AM Abdulkadir Mckeon MD, FACS Active Note: Unchanged Retinopathy Hypertensive Both Eyes 12/09/2012 - 12:00AM Abdulkadir Mckeon MD, FACS Active Note: Unchanged Seborrheic Keratosis 12/09/2012 - 12:00AM Abdulkadir Dumont MD, FACS Active Note: Unchanged [...] subfoveal involvement 1 Year Follow-Up with Mateus Cantrellstein DO 07/07/2019 Benign neoplasm of the choroidal nevus 1 Year Follow-U p with Mateus Cantrellstein DO 07/07/2019 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 1 Year Follow-Up with Mateus Cantrellstein DO 07/07/2019 Dry eye syndrome of both eyes 1 Year Follow-Up with Mateus Cantrellstein DO 07/07/2019 Essential hypertension 1 Year Follow-Up with Mateus stevens DO 07/07/2019 History of nicotine dependence 1 Year Follow-Up with Mateus Cantrellstein DO 07/07/2019 Intermediate dry stage nonexudative macular degenerati on of right eye 1 Year Follow-Up with Mateus Cantrellstein DO 07/07/2019 Pseudophakia 1 Year Follow-Up with Mateus Cantrellstein DO 07/07/2019 Type 2 diabetes mellitus without complication 1 Year F ollow-Up with Mateus Cantrellstein DO 07/07/2019 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 6 Month Follow-Up with Mateus Cantrellstein DO 06/04/2018 Dry eye syndrome of both eyes 6 Month Follow-Up with Mateus Cantrellstein DO 06/04/2018 Essential hypertension 6 Month Follow-Up with Mateus da silva DO 06/04/2018 History of nicotine dependence 6 Month Follow-Up with Portillo underwood Gonzalez DO 06/04/2018 Intermediate dry stage nonexudative macular degenerati on of both eyes 6 Month Follow-Up with Mateus Cantrellstein DO 06/04/2018 Type 2 diabetes mellitus without complication 6 Month Follow-Up with Mateus Cantrellstein DO 06/04/2018 Essential hypertension 8 Month Follow-Up and Testing with Jose [facility]betzyw [facility] DO 11/28/2017 History of nicotine dependence 8 Month Follow-Up and T esting with Mateus Cantrellstein DO 11/28/2017 Intermediate dry stage nonexudative macular degenerati on of both eyes 8 Month Follow-Up and Testing with Mateus Cantrellstein DO 11/28/2017 Pseudophakia 8 Month Follow-Up and Testing with Lianna Cantrellstein DO 11/28/2017 Type 2 diabetes mellitus without complication 8 Month Follow-Up and Testing with Mateus Gonzalez DO 11/28/2017 Pseudophakia 3 - 4 WK Post CAT SX with Mateus da silva DO 03/20/2017 Pseudophakia 1 Day Post OP with Mateus Roth DO 02/16/2017 Nuclear senile cataract PRE OP WITH TESTING with Mateus leary DO 02/06/2017 Arcus senilis was observed CATARACT EVAL - REFERRAL FR DR. RICKETTS with Mateuskehinde Roth DO 11/14/2016 Dry eye syndrome CATARACT EVAL - REFERRAL FR DR. RICKETTS with Mateus Gonzalez DO 11/14/2016 Nuclear senile cataract CATARACT EVAL - REFERRAL FR DR. RICKETTS with Mateus Gonzalez DO 11/14/2016 Type 2 diabetes mellitus without complication CATARACT EVAL - REFERRAL FR DR. RICKETTS with Mateuskehinde Roth DO 11/14/2016 Vitreous degeneration CATARACT EVAL - [...] Illness Recorded Social History Description Last Updated Alcohol use 2 ounces daily 10/25/2018 No tobacco use 06/04/2018 Not using drugs 06/04/2018 Smoking status : Former smoker 06/04/2018 Previous smoking history 12/09/2012 Alcohol 12/09/2012 Procedures and Surgical History Includes: Procedures from 03/31/2019 through 03/31/2020 Procedures Code Diagnosis Performing Provider Service Location Service Date Scodi Retina, with interpretation and re port (WAIVER OF LIABILITY ON FILE (ABN)) 66519 Nexdtve age-rel mclr degn, l eye, adv atrpc w sbfvl involv, Essential (primary) hypertension, Personal history of nicotine dependence Mateus Camarena MD [facility] 07/07/2019 Comprehensive eye exam established patient (Signi/Sep Eval. & Man.) 54072 Nexdtve age-rel mclr degn, l eye, adv atrpc w sbfvl involv, Essential (primary) hypertension, Personal history of nicotine dependence, Type 2 diabetes mellitus without complications Mateus Camarena MD [facility] 07/07/2019 Surgical History Last Updated History of cataract surgery -PCIOL OS ~-PCIOL OD 02/04 06/[address] Roth 01/19/2020 Surgical / procedural history : Cyst rem [place] upper right arm, Metal removed from OS about 30 years ago 02/16/2014 Medical History Includes: Medical History in patient's chart Description Last Updated History of fundoscopic exam through dilated pupils [...] Last Updated Fraternal history of diabetes mellitus 06/04/2018 Maternal history of hypertension 06/04/2018 Paternal history of diabetes mellitus 06/04/2018 Paternal history of hypertension 06/04/2018 Fraternal history of hypertension 10/14/2014 Review of [...] iagnosis 1 Year Follow-Up Mateus Camarena MD [facility] 06/2019 2:46PM 4:18PM Dry Eye Syndrome Both [...] ID Group # Subscriber Relationship Effective [employer] - [employer] [id number] Gage Cortes Advance Directives Includes: Current Advance DirectivesNo Advance Directives Recorded Health Concerns Includes: Active Health ConcernsNo Active Health Concerns Recorded Goals Includes: Active GoalsNo Active Goals Recorded Interventions Includes: Interventions for active GoalsNo Interventions Recorded Evaluations & Outcomes Includes: Evaluations & Outcomes for active GoalsNo Outcomes Recorded
--- OUTSIDE RECORDS SUMMARY | 2020-06-21 16:34 | CCD ---
Author Author [facility] Organization [facility] Address Unknown Phone Unavailable Care Team Providers Care Twisting Press Operator Name Role Phone Hans Quintero Unavailable PROBLEMS Type Condition ICD9-CM Code [id number] Code Onset Dates Condition S tatus SNOMED Code Notes Problem Vitamin D deficiency, unspecified E55.9 Active 44853349 Problem Other hyperlipidemia E78.4 Active 84775200 Problem Alcoholism F10.20 Active 6111599 Problem Macrocytosis D75.89 Active 708441204 Problem Chronic kidney disease, unspecified N18.9 Acti ve 722673406 Problem Depression, unspecified depression type F32.9 Active 54347723 Problem Essential (primary) hypertension I10 Active 84503789 Problem Paresthesia of skin R20.2 Active 58797572 Problem Acute kidney failure, unspecified N17.9 Active 13397436 Problem 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 Active 54762626 Problem Multiple chronic diseases R69 Active 310898 4672997 Problem History of colon polyps Z86.010 Active 45633462 2 Problem Hyperlipidemia, unspecified E78.5 Active 5582 2003 ALLERGIES Allergen (clinical drug ingredient) Drug/Non Drug Allergy do cumented on EMR Reaction Allergy Type Onset Date Status naproxen Aleve(NDC Code:[address]-48) Hives Drug Allergy Active lisinopril Lisinopril(NDC Code:[address]-22) Cough Drug Allergy Active ENCOUNTERS from 1935 to 2020-06-02 Encounter Location Date Provider Diagnosis [facility] [place] [address] May, Hans Quintero IMMUNIZATIONS Vaccine Route Administration Date Status Influenza (18 yrs & older) Flublok IM Intramuscular Feb 27, 2018 Administered Influenza (High Dose 65 & up) IM Intramuscular Apr 20, 2017 A dministered Influenza (High Dose 65 & up) IM Intramuscular Jan 22, 2015 A dministered Pneumococcal 0.5mL (Prevnar 13) IM Intramuscular Jan 22, 2015 Administered Influenza (6mo & up) Fluzone IM Intramuscular Mar 25, 2014 Ad ministered Influenza (6mo & up) Fluzone IM Intramuscular Feb 26, 2013 Ad ministered Influenza (6mo & up) Fluzone IM Feb 22, 2012 Adm inistered Influenza (6mo & up) Fluzone IM Intramuscular Mar 17, 2011 Ad ministered SOCIAL HISTORY Tobacco Use: Social History Observation Description Date Details (start date - stop date) Never Smoker Sex Assigned At : Social History Observation Description Sex Assigned At Unknown Audit Question Answer Notes Total Score: 4 Interpretation: Alcohol Education Sexual Hx: Question Answer Notes Had sex in the last 12 months (vaginal, oral, or anal)? No Drug and Alcohol Question Answer Notes Total Score: 0 Interpretation: No problems reported Alcohol Screening: Question Answer Notes Did you have a drink containing alcohol in the past year? No Points 0 Interpretation Negative BMI Care Goal Follow-Up Question Answer Notes Above Normal BMI Follow-Up Dietary management educatio n, guidance, and counseling Tobacco Use: Question Answer Notes Are you a: never smoker REASON FOR REFERRAL No Information VITAL SIGNS No information MEDICATIONS Medication SIG (Take, Route, Frequency, Duration) Notes Start Da te End Date Status Pharmacist Choice Alcohol TEST TWICE DAILY Active Metoprolol Succinate ER 25 MG 1 tablet Orally Once a day 1 Jan, Active One touch ultra blue Misc as directed _ E11.22 daily Active Furosemide 40 MG 1 tablet Orally Once a day for 90 Active Xiidra 5 % INSTILL 1 DROP INTO BOTH EYES BID Ophthalmic Active Aspirin Adult Low Strength 81 MG 1 tablet Orally Once a day September, Active One touch ultra blue as directed _ E11.22 daily BID May Active Centrum Silver ---- 1 TAB Orally Daily Active Pharmacist Choice Lancets 1 TEST TWICE DAILY E11.9,0E 11.22 subcutaneously twice daily Nov, Active Restasis 0.05 % INT 1 GTT INTO OU BID Ophthalmic Active Simvastatin 20 take 1 tablet by mouth daily orally Daily Active Losartan Potassium 100mg 1 TABLET DAILY ORALLY 90 DAY(S) orally Daily for 90 Active Darling 3 1000 mg 1 Orally Daily Mar, Act darwin PROCEDURES No Information RESULTS No Results REASON FOR VISIT social concerns/ consult MEDICAL (GENERAL) HISTORY Type Description Date Medical History Hypertension Medical History Diabetes Medical History Elevated cholesterol Medical History RENAL FAILURE Medical History VITAMIN D DEFICIENCY Surgical History Cataract left eye 2008 Surgical History EXC CYST RT UPPER ARM 2012 Hospitalization History Surgery Goals Section No Information Health Concerns No Information MEDICAL EQUIPMENT No Information MENTAL STATUS No Information FUNCTIONAL STATUS No Information ASSESSMENTS No Information PLAN OF TREATMENT Medication Medication Name Sig Start Date Stop Date Xiidra 5 % INSTILL 1 DROP INTO BOTH EYES BID Ophthalmic Losartan Potassium 100mg 1 TABLET DAILY ORALLY 90 DAY(S) orally Daily for 90 Furosemide 40 MG 1 tablet Orally Once a day for 90 One touch ultra blue Misc as directed _ E11.22 daily One touch ultra blue as directed _ E11.22 daily BID May, Pharmacist Choice Alcohol TEST TWICE DAILY Centrum Silver ---- 1 TAB Orally Daily Metoprolol Succinate ER 25 MG 1 tablet Orally Once a day Jan, Restasis 0.05 % INT 1 GTT INTO OU BID Ophthalmic Darling 3 1000 mg 1 Orally Daily Mar, Aspirin Adult Low Strength 81 MG 1 tablet Orally Once a day 02 M 2013 Pharmacist Choice Lancets 1 TEST TWICE DAILY E11.9,0E 11.22 subcutaneously twice daily Nov, Simvastatin 20 take 1 tablet by mouth daily orally Daily Insurance Providers Payer Name Payer Address Payer Phone Insured Name Patient Relati onship to Insured Coverage Start Date Coverage End Date MEDICARE COMPLETE [employer] [address] [address] [facility] [id number] [employer] self
--- OUTSIDE RECORDS SUMMARY | 2020-06-21 16:35 | CCD ---
Author Author [facility] Organization [facility] Address Unknown Phone Unavailable Care Team Providers Care Casing Runner Name Role Phone LUNA MACKAY Unavailable Unavailable REKHA DANIEL Unavailable Unavailable Rip ROTH DO Unavailable [phone] Rip ROTH DO Unavailable [phone] Rip ROTHEW DO Unavailable [phone] Rip ROTHEW DO Unavailable [phone] Rip ROTHEW DO Unavailable [phone] Rip ROTHEW DO Unavailable [phone] Rip ROTHEW DO Unavailable [phone] Rip ROTHEW DO Unavailable [phone] Rip ROTHEW DO Unavailable [phone] Rip ROTHEW DO Unavailable [phone] Rip ROTHEW DO Unavailable [phone] Rip ROTHEW DO Unavailable [phone] Rip ROTHEW DO Unavailable [phone] Rip ROTHEW DO Unavailable [phone] Rip ROTHEW DO Unavailable [phone] Rip ROTHEW DO Unavailable [phone] Rip ROTHEW DO Unavailable [phone] Rip ROTHEW DO Unavailable [phone] Rip ROTHEW DO Unavailable [phone] Rip ROTHEW DO Unavailable [phone] Rip ROTHEW DO Unavailable [phone] Evans, Aicha TAKE UP SUPERVISOR Unavailable Unavailable Evans, Aicha TAKE UP SUPERVISOR Unavailable Unavailable Evans, Aicha TAKE UP SUPERVISOR Unavailable Unavailable Evans, Aicha TAKE UP SUPERVISOR Unavailable Unavailable Evans, Aicha TAKE UP SUPERVISOR Unavailable Unavailable Evans, Aicha TAKE UP SUPERVISOR Unavailable Unavailable Eavns, Aicha TAKE UP SUPERVISOR Unavailable Unavailable Evans, Aicha TAKE UP SUPERVISOR Unavailable Unavailable Evans, Aicha TAKE UP SUPERVISOR Unavailable Unavailable Evans, Aicha TAKE UP SUPERVISOR Unavailable Unavailable Evans, Aicha TAKE UP SUPERVISOR Unavailable Unavailable Evans, Aicha TAKE UP SUPERVISOR Unavailable Unavailable Evans, Aicha TAKE UP SUPERVISOR Unavailable Unavailable Evans, Aicha TAKE UP SUPERVISOR Unavailable Unavailable Evans, Aicha TAKE UP SUPERVISOR Unavailable Unavailable Evans, Aicha TAKE UP SUPERVISOR Unavailable Unavailable Evans, Aicha TAKE UP SUPERVISOR Unavailable Unavailable Evans, Aicha TAKE UP SUPERVISOR Unavailable Unavailable Evans, Aicha TAKE UP SUPERVISOR Unavailable Unavailable Evans, Aicha TAKE UP SUPERVISOR Unavailable Unavailable Evans, Aicha TAKE UP SUPERVISOR Unavailable Unavailable Evans, Aicha TAKE UP SUPERVISOR Unavailable Unavailable Evans, Aicha TAKE UP SUPERVISOR Unavailable Unavailable Evans, Aicha TAKE UP SUPERVISOR Unavailable Unavailable Evans, Aicha TAKE UP SUPERVISOR Unavailable Unavailable Evans, Aicha TAKE UP SUPERVISOR Unavailable Unavailable Evans, Aicha TAKE UP SUPERVISOR Unavailable Unavailable Evans, Aicha TAKE UP SUPERVISOR Unavailable Unavailable Evans, Aicha TAKE UP SUPERVISOR Unavailable Unavailable Evans, Aicha TAKE UP SUPERVISOR Unavailable Unavailable Evans, Aicha TAKE UP SUPERVISOR Unavailable Unavailable Evans, Aicha TAKE UP SUPERVISOR Unavailable Unavailable Evans, Aicha TAKE UP SUPERVISOR Unavailable Unavailable Evans, Aicha TAKE UP SUPERVISOR Unavailable Unavailable Evans, Aicha TAKE UP SUPERVISOR Unavailable Unavailable Evans, Aicha TAKE UP SUPERVISOR Unavailable Unavailable Re-disclosure Warning The records that you are about to access may contain information from federally-assisted alcohol or drug abuse programs. If such information is present, then the following federally mandated warning applies: This information has been disclosed to you from records protected by federal confidentiality rules (42 CFR part 2). The federal rules prohibit you from making any further disclosure of this information unless further disclosure is expressly permitted by the written consent of the person to whom it pertains or as otherwise permitted by 42 CFR part 2. A general authorization for the release of medical or other information is NOT sufficient for this purpose. The Federal rules restrict any use of the information to criminally investigate or prosecute any alcohol or drug abuse patient.The records that you are about to access may contain highly sensitive health information, the redisclosure of which is protected by Article 27-F of the [facility] Public Health law. If you continue you may have access to information: Regarding HIV / AIDS; Provided by facilities licensed or operated by the [facility] Office of Mental Health; or Provided by the [facility] Office for People With Developmental Disabilities. If such information is present, then the following [facility] mandated warning applies: This information has been disclosed to you from confidential records which are protected by state law. State law prohibits you from making any further disclosure of this information without the specific written consent of the person to whom it pertains, or as otherwise permitted by law. Any unauthorized further disclosure in violation of state law may result in a fine or [place] [facility] sentence or both. A general authorization for the release of medical or other information is NOT sufficient authorization for further disc losure. Allergies and Adverse Reactions Type Description Substance Reaction Status Data Source(s ) Allergy to substance No Known Allergies No known allergies (situation ) [place] (Bryce Atkins [facility]) Allergy to substance No Known Allergies No known allergies (situation ) [place] ([facility]ryce Atkins [facility]) lisinopril Lisinopril Lisinopril Cough Active eCW1 ([facility]) Drug allergy Aleve Naproxen Hives Active eCW1 ([facility]) Encounters Encounter Providers Location Date Indications Data Source(s ) [place] [address] [address] 05/28/2020 12:00:00 AM EST eCW1 (Formerly [facility]) [facility] [address] [address] 07/16/2019 12:00:00 AM EDT eCW1 ([facility]) Outpatient Attender: REKHAKATERYNA DANIEL 07/08/2019 01:34:00 PM [facility] Outpatient<td ID="encounterTypeDescripti onID0">1 Year Follow-Up</td><td>Jaek Roth DO</td><td>Bryce Mckeon MD [facility]</td><td>07/07/2019</td><td>2:46PM</td><td>4:18PM</td><td><content ID="encounterDiagnosisID0-0">Dry Eye Syndrome Both Eyes</content>, <content ID="encounterDiagnosisID0-1">Diabetes Mellitus Type 2 Without Complication</content>, <content ID="encounterDiagnosisID0-2">Borderline Glaucoma Ocular Hypertension Both Eyes</content>, <content ID="encounterDiagnosisID0-3">Benign Neoplasm of Choroidal Nevus</content>, <content ID="encounterDiagnosisID0-4">Pseudophakia</content>, <content ID="encounterDiagnosisID0-5">Essential Hypertension</content>, <content ID="encounterDiagnosisID0-6">History of Nicotine Dependence</content>, <content ID="encounterDiagnosisID0-7">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 07/07/2019 02:46:00 PM EST - 07/07/2019 04:18:00 PM EST 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History of Nicotine DependenceEssential HypertensionPseudophakiaDiabetes Mellitus Type 2 Without ComplicationHistory of Nicotine DependenceEssential HypertensionPseudophakiaDiabetes Mellitus Type 2 Without ComplicationBorderline Glaucoma Ocular Hypertension Both EyesBorderline Glaucoma Ocular Hypertension Both EyesBenign Neoplasm of Choroidal NevusBenign Neoplasm of Choroidal NevusDry Eye Syndrome Both EyesDry Eye Syndrome Both Eyes [place] ([facility]ryce Atkins 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 Dry Eye Syndrome Both Eyes Dry Eye Syndrome Both Eyes Outpatient Attender: REKHA DANIEL 06/27/2019 03:00:[address] [address] 06/27/2019 12:00:00 AM EST eCW1 (Formerly [facility]) [address] [address] 06/18/2019 12:00:00 AM EST eCW1 (Formerly [facility]) [address] [address] 06/05/2019 12:00:00 AM EST eCW1 (Formerly [facility]) [address] [address] 05/23/2019 12:00:00 AM EST eCW1 (Formerly [facility]) Outpatient Attender: LUNA MACKAY 03/17/2019 11:00:00 AM [facility] Outpatient Attender: Aicha GAYTAN 02/15/2015 01:47:00 PM [facility] Immunizations Vaccine Date Status Description Data Source(s) COVID-19 VACCINE, MRNA-1273, LNP-S (MODERNA)/PF 06/10/2020 1 2:00:00 AM EST completed [facility] Medications Medication Brand Name Start Date Product Form Dose Route Admi nistrative Instructions Pharmacy Instructions Status Indications Reaction Description Data Source(s) 100 mg 05/28/2020 12:00:00 AM EST capsule 10 TAKE ONE CAPSULE BY MOUTH TWICE A DAY FOR 5 DAYS TAKE ONE CAPSULE BY MOUTH TWICE A DAY FOR 5 DAYS SOLD: 05/28/2020 [facility] Lotemax SM 0.38% Ophthalmic Gel Lotemax SM 0.38% Ophthalmic Gel 07/07/2019 12:00:00 AM EST active loteprednol etabonate 0.0038 MG/MG Ophthalmic Gel [Lotemax] [place] ([facility]ryce Atkins [facility]) Insurance Providers Payer name Policy type / Coverage type Policy ID Covered constitution party ID Covered constitution party's relationship to morris Policy [employer] Plan Information MEDICARE COMPLETE [id number] SP [id number] [facility] MEDICARE [id number] S [id number] [facility] MEDICARE [id number] S [id number] [facility] MEDICARE [id number] S [id number] ANS-Medicare Part B [id number] ANSI-Commercial [id number] ANSI-Commercial [id number] ANSI-Medicare Part B [id number] ANSI-Commercial [id number] ANSI-Medicare Part B [id number] ANSI-Commercial [id number] ANSI-Medicare Part B [id number] ANSI-Medicare Part B [id number] ANSI-Commercial [id number] MEDICARE COMPLETE [id number] SP [id number] ANSI-Commercial [id number] ANSI-Medicare Part B [id number] ANSI-Medicare Part B [id number] ANSI-Commercial [id number] ANSI-Medicare Part B [id number] ANSI-Commercial [id number] MEDICARE COMPLETE [id number] SP [id number] ANSI-Medicare Part B [id number] ANSI-Commercial [id number] ANSI-Commercial [id number] ANSI-Medicare Part B [id number] ANSI-Medicare Part B [id number] ANSI-Commercial [id number] ANSI-Commercial [id number] ANSI-Medicare Part B [id number] ANSI-Medicare Part B [id number] ANSI-Commercial [id number] ANSI-Commercial [id number] [facility]-Medicare Part B [id number] ANSI-Commercial [id number] [facility]-Medicare Part B [id number] MEDICARE COMPLETE [id number] SP [id number] Problems, Conditions, and Diagnoses Code Display Name Description Problem Type Effective Dates Data Source(s) D75.89 547239638 Macrocytosis Problem 06/01/2020 12:00:00 AM EST eCW1 ([facility]) F10.20 9494097 Alcoholism Problem 06/01/2020 12:00:00 AM ES T eCW1 ([facility]) 421560839 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) R20.2 97954561 Paresthesia of skin Problem 06/05/2019 12:00 :00 AM EST eCW1 ([facility]) R20.2 06977179 Paresthesia of skin Problem 06/05/2019 12:00 :00 AM EST eCW1 ([facility]) F43.20 Adjustment disorder, unspecified ADJUSTMENT DISO RDER, UNSPECIFIED Diagnosis 06/27/2019 03:00:00 PM EST [facility] Surgeries/Procedures Procedure Description Date Indications Data Source(s) Cataract surgery (procedure) History of cataract surge ry -PCIOL OS ~-PCIOL OD 02/15/[address] Roth 01/19/2020 12:00:00 AM EDT [place] [facility] ([facility]ce Atkins [facility]) Office Visit, Est Pt., Level 3 FC 07/16/2019 12:00:00 AM EDT eCW1 ([facility]) Office Visit, Est Pt., Level 4 PC 07/16/2019 12:00:00 AM EDT eCW1 ([facility]) Comprehensive eye exam established patient (Signi/Sep Eval. & Man.) Comprehensive eye exam established patient (Signi/Sep Eval. & Man.) 07/07/2019 12:00:00 AM EST [place] ([facility]) Scodi Retina, with interpretation and re port (WAIVER OF LIABILITY ON FILE (ABN)) Scodi Retina, with interpretation and re port (WAIVER OF LIABILITY ON FILE (ABN)) 07/07/2019 12:00:00 AM [place] [place] (Alexis Atkins MD [facility]) Office Visit, Est Pt., Level 3 PC 06/05/2019 12:00:00 AM EST eCW1 ([facility]) Social History Code Duration Value Status Description Data Source(s ) Smoking 03/31/2020 11:06:35 AM EST Ex-smoker (finding) complet ed Ex-smoker (finding) [place] ([facility]) Smoking 03/31/2020 10:56:35 AM EST Ex-smoker (finding) complet ed Ex-smoker (finding) [place] ([facility]) Smoking 07/16/2019 12:00:00 AM EDT Never Smoker completed Never S moker eCW1 ([facility]) Vital Signs ID Date Data Source UNK Name Value Range Interpretation Code Description Data Source(s) Diastolic blood pressure 75 mm[Hg] 75 mm[Hg] eCW1 ([facility]) Systolic blood pressure 124 mm[Hg] 124 mm[Hg] e CW1 ([facility]) Body temperature [degF] eCW1 ([facility]) Respiratory rate 20 /min 20 /min eCW1 ([facility]) Heart rate 67 /min 67 /min eCW1 ([facility]) Body mass index (BMI) [Ratio] 31.75 kg/m2 31.75 kg/m2 eCW1 ([facility]) Body height [in_us] eCW1 ([facility]) Body weight Measured 185 [lb_av] 185 [lb_av] eC W1 ([facility]) Diastolic blood pressure 81 mm[Hg] 81 mm[Hg] eCW1 ([facility]) Systolic blood pressure 183 mm[Hg] 183 mm[Hg] e CW1 ([facility]) Body temperature [degF] eCW1 ([facility]) Respiratory rate 22 /min 22 /min eCW1 ([facility]) Heart rate 58 /min 58 /min eCW1 ([facility]) Body mass index (BMI) [Ratio] 31.41 kg/m2 31.41 kg/m2 eCW1 ([facility]) Body height [in_us] eCW1 ([facility]) Body weight Measured 183 [lb_av] 183 [lb_av] eC W1 ([facility]) Patient Treatment Plan of Care Planned Activity Planned Date Details Description Data Source (s) Lotemax SM 0.38% Ophthalmic Gel 07/07/2019 12:00:[address] [facility] (Bryce Atkins [facility])
[2020-06-21] MEDS ORDERED: ceFAZolin SOD 1 GM in D5W MINI-BAG PLUS 50 ML IV ONE (16:45)
[2020-06-21] MEDS ORDERED: BOOSTRIX/ADACEL VACCINE (DIPHTH/PERTUSS/ACELL/TETANUS) 0.5ML SYR IM ONE (17:00)
[2020-06-21 17:36] LABS: BASO % 0.3 % (0.0-1.0); EOS % 0.1 % (0.0-3.0); HEMATOCRIT 37.2 % (42.0-52.0); HEMOGLOBIN 12.1 g/dl (13.5-17.5); LYMPH # 0.6 10^3/uL (1.5-5.0); MEAN CORPUSCULAR HEMOGLOBIN 33.2 pg (27.0-33.0); MEAN CORPUSCULAR HGB CONC 32.5 g/dl (32.0-36.5); MEAN CORPUSCULAR VOLUME 101.9 fl (80.0-96.0); MONO # 0.6 10^3/uL (0.0-0.8); MONO % 4.7 % (0.0-8.0); NEUTROPHILS # 10.4 10^3/uL (1.5-8.5); NEUTROPHILS % 89.2 % (36.0-66.0); PLATELET COUNT, AUTOMATED 175 10^3/uL (150-450); RED BLOOD COUNT 3.65 10^6/uL (4.30-6.10); WHITE BLOOD COUNT 11.6 10^3/uL (4.0-10.0)
--- NOTE | 2020-06-21 17:36 | REP ---
INDICATION: CHEST PAIN. COMPARISON: No comparison chest x-ray. TECHNIQUE: Portable upright AP chest radiograph. FINDINGS: The lungs are somewhat hyperinflated but free of infiltrate. Pleural angles are sharp. Heart size is normal. Monitoring electrodes are seen. There are degenerative changes in the shoulders bilaterally.. IMPRESSION: No active disease. <Electronically signed by Eulalio Petersen > 06/21/20 [id number]
[2020-06-21 17:48] LABS: INR 0.89; PROTHROMBIN TIME 12.2 SECONDS (12.5-14.3)
[2020-06-21 17:49] LABS: PARTIAL THROMBOPLASTIN TIME 27.1 SECONDS (24.2-38.5)
[2020-06-21 18:08] LABS: ALBUMIN 3.6 GM/DL (3.2-5.2); ALT/SGPT 24 U/L (12-78); BILIRUBIN,DIRECT < 0.1 MG/DL (0.0-0.2); BILIRUBIN,TOTAL 0.4 MG/DL (0.2-1.0); BLOOD UREA NITROGEN 25 MG/DL (7-18); CALCIUM LEVEL 8.9 MG/DL (8.8-10.2); CARBON DIOXIDE LEVEL 25 MEQ/L (21-32); CHLORIDE LEVEL 100 MEQ/L (98-107); CK-MB VALUE MASS 1.7 NG/ML (<3.6); CPK CREATINE PHOSPHOKINASE 206 U/L (39-308); CREATININE FOR GFR 1.48 MG/DL (0.70-1.30); FREE T4 0.99 NG/DL (0.76-1.46); GLUCOSE, FASTING 82 MG/DL (70-100); MB/CK RELATIVE INDEX 0.83 (< OR =4); SODIUM LEVEL 136 MEQ/L (136-145); TOTAL PROTEIN 7.4 GM/DL (6.4-8.2); TROPONIN I < 0.02 NG/ML (< 0.10)
[2020-06-21 18:09] LABS: POTASSIUM SERUM 4.8 MEQ/L (3.5-5.1)
[2020-06-21] MEDS ORDERED: NS 500 ML IV ONE (18:45)
[2020-06-21] MEDS ORDERED: SIMV20TA22 PO (19:43)
[2020-06-21] MEDS ORDERED: ECOT81TA5 PO (19:53)
[2020-06-21] MEDS ORDERED: MED REC COMMENT (19:54)
[2020-06-21] MEDS ORDERED: SPIR-10 PO (19:55)
[2020-06-21 20:17] LABS: RSV AMPLIFICATION NEGATIVE (NEGATIVE)
--- OUTSIDE RECORDS SUMMARY | 2020-06-21 21:57 | CCD ---
Author Author [facility] Organization [facility] Address Unknown Phone Unavailable Care Team Providers Care Waste Management Recycling Technician Name Role Phone LUNA MACAKY Unavailable Unavailable REKHA DANIEL Unavailable Unavailable Rip [...] ROTHEW DO Unavailable [phone] Evans, Aicha ACCOUNT REVIEW SPECIALIST Unavailable Unavailable Evans, Aicha ACCOUNT REVIEW SPECIALIST Unavailable Unavailable Evans, Aicha ACCOUNT REVIEW SPECIALIST Unavailable Unavailable Evans, Aicha ACCOUNT REVIEW SPECIALIST Unavailable Unavailable Evans, Aicha ACCOUNT REVIEW SPECIALIST Unavailable Unavailable Evans, Aicha ACCOUNT REVIEW SPECIALIST Unavailable Unavailable Evans, Aicha ACCOUNT REVIEW SPECIALIST Unavailable Unavailable Evans, Aicha ACCOUNT REVIEW SPECIALIST Unavailable Unavailable Evans, Aicha ACCOUNT REVIEW SPECIALIST Unavailable Unavailable Evans, Aicha ACCOUNT REVIEW SPECIALIST Unavailable Unavailable Evans, Aicha ACCOUNT REVIEW SPECIALIST Unavailable Unavailable Evans, Aicha ACCOUNT REVIEW SPECIALIST Unavailable Unavailable Evans, Aicha ACCOUNT REVIEW SPECIALIST Unavailable Unavailable Evans, Aicha ACCOUNT REVIEW SPECIALIST Unavailable Unavailable Evans, Aicha ACCOUNT REVIEW SPECIALIST Unavailable Unavailable Evans, Aicha ACCOUNT REVIEW SPECIALIST Unavailable Unavailable Evans, Aicha ACCOUNT REVIEW SPECIALIST Unavailable Unavailable Evans, Aicha ACCOUNT REVIEW SPECIALIST Unavailable Unavailable Evans, Aicha ACCOUNT REVIEW SPECIALIST Unavailable Unavailable Evans, Aicha ACCOUNT REVIEW SPECIALIST Unavailable Unavailable Evans, Aicha ACCOUNT REVIEW SPECIALIST Unavailable Unavailable Evans, Aicha ACCOUNT REVIEW SPECIALIST Unavailable Unavailable Evans, Aicha ACCOUNT REVIEW SPECIALIST Unavailable Unavailable Evans, Aicha ACCOUNT REVIEW SPECIALIST Unavailable Unavailable Evans, Aicha ACCOUNT REVIEW SPECIALIST Unavailable Unavailable Evans, Aicha ACCOUNT REVIEW SPECIALIST Unavailable Unavailable Evans, Aicha ACCOUNT REVIEW SPECIALIST Unavailable Unavailable Evans, Aicha ACCOUNT REVIEW SPECIALIST Unavailable Unavailable Evans, Aicha ACCOUNT REVIEW SPECIALIST Unavailable Unavailable Evans, Aicha ACCOUNT REVIEW SPECIALIST Unavailable Unavailable Evans, Aicha ACCOUNT REVIEW SPECIALIST Unavailable Unavailable Evans, Aicha ACCOUNT REVIEW SPECIALIST Unavailable Unavailable Evans, Aicha ACCOUNT REVIEW SPECIALIST Unavailable Unavailable Evans, Aicha ACCOUNT REVIEW SPECIALIST Unavailable Unavailable Evans, Aicha ACCOUNT REVIEW SPECIALIST Unavailable Unavailable Evans, Aicha ACCOUNT REVIEW SPECIALIST Unavailable Unavailable Re-disclosure Warning The records that [...] is protected by Article 27-F of the [facility] Public Health law. If you continue you may have access to information: Regarding HIV / AIDS; Provided by facilities licensed or operated by the [facility] Office of Mental Health; or Provided by the [facility] Office for People With Developmental Disabilities. If such information is present, then the following [facility] mandated warning applies: This information has [...] law may result in a fine or skilled nursing sentence or both. A general authorization for the release of medical or other information is NOT sufficient authorization for further disc losure. Allergies and Adverse Reactions Type Description Substance Reaction Status Data Source(s ) Allergy to substance No Known Allergies No known allergies (situation ) [place] ([facility]) Allergy to substance No Known Allergies No known allergies (situation ) [place] ([facility]) lisinopril Lisinopril Lisinopril Cough Active eCW1 ([facility]) Drug allergy Aleve Naproxen Hives Active eCW1 ([facility]) Encounters Encounter Providers Location Date Indications Data Source(s ) Unknown [address] [facility] [address] 05/28/2020 12:00:00 AM EST eCW1 ([facility]) [facility] [address] [facility] [address] 07/16/2019 12:00:00 AM EDT eCW1 ([facility]) Outpatient Attender: REKHAKATERYNA DANIEL 07/08/2019 01:34:00 PM [facility] Outpatient<td ID="encounterTypeDescripti onID0">1 Year Follow-Up</td><td>Jake Roth DO</td><td>Bryce Mckeon MD [facility]</td><td>07/07/2019</td><td>2:46PM</td><td>4:18PM</td><td><content ID="encounterDiagnosisID0-0">Dry Eye Syndrome Both Eyes</content>, <content ID="encounterDiagnosisID0-1">Diabetes Mellitus Type 2 Without Complication</content>, <content ID="encounterDiagnosisID0-2">Borderline Glaucoma Ocular Hypertension Both Eyes</content>, <content ID="encounterDiagnosisID0-3">Benign Neoplasm of Choroidal Nevus</content>, <content ID="encounterDiagnosisID0-4">Pseudophakia</content>, <content ID="encounterDiagnosisID0-5">Essential Hypertension</content>, <content ID="encounterDiagnosisID0-6">History of Nicotine Dependence</content>, <content ID="encounterDiagnosisID0-7">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</content>, <content ID="encounterDiagnosisID0-8">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</content></td> Attender: JAKE Camarena MD [facility] 07/07/2019 02:46:00 PM EST - 07/07/2019 04:18:00 [...] Syndrome Both Eyes [place] ([facility]kins [facility]) Macular Degen Nonexud L Eye Adv Atrophic [...] Outpatient Attender: REKHA DANIEL 06/27/2019 03:00:[address] [address] 06/27/2019 12:00:00 AM EST eCW1 ([facility]) [address] [address] 06/18/2019 12:00:00 AM EST eCW1 ([facility]) [address] [address] 06/05/2019 12:00:00 AM EST eCW1 ([facility]) [address] [address] 05/23/2019 12:00:00 AM EST eCW1 ([facility]) Outpatient Attender: LUNA MACKAY 03/17/2019 11:00:00 AM [facility] Outpatient Attender: Aicha GAYTAN 02/15/2015 01:47:00 PM [facility] [place] Immunizations Vaccine Date Status Description Data Source(s) [...] Ophthalmic Gel [Lotemax] [place] ([facility]) Insurance Providers Payer name Policy type / Coverage type Policy ID Covered libertarian ID Covered libertarian's relationship to morris Policy [employer] Plan Information MEDICARE COMPLETE [id number] SP [id number] MEDICARE COMPLETE [id number] SP [id number] [employer] MEDICARE [id number] S [id number] [facility] MEDICARE [id number] S [id number] UNITED [employer] MEDICARE [id number] S [id number] ANSI-Medicare Part B [id number] ANSI-Commercial [id number] ANSI-Commercial [id number] ANSI-Medicare Part B [id number] ANSI-Commercial [id number] ANSI-Medicare Part B [id number] ANSI-Commercial [id number] ANSI-Medicare Part B [id number] ANSI-Medicare Part B [id number] ANSI-Commercial [id number] MEDICARE COMPLETE [id number] SP [id number] ANSI-Commercial [id number] ANSI-Medicare Part B [id number] ANSI-Medicare Part B [id number] ANSI-Commercial [id number] ANSI-Medicare Part B [id number] ANSI-Commercial [id number] MEDICARE COMPLETE [id number] SP [id number] ANSI-Medicare Part B [id number] ANSI-Commercial [id number] ANSI-Commercial [id number] ANSI-Medicare Part B [id number] ANSI-Medicare Part B [id number] ANSI-Commercial [id number] ANSI-Commercial [id number] ANSI-Medicare Part B [id number] ANSI-Medicare Part B [id number] ANSI-Commercial [id number] ANSI-Commercial [id number] ANSI-Medicare Part B [id number] ANSI-Commercial [id number] ANS-Medicare Part B [id number] MEDICARE COMPLETE [id number] [id number] Problems, Conditions, and Diagnoses Code Display Name Description Problem Type Effective Dates Data Source(s) D75.89 350431805 Macrocytosis Problem 06/01/2020 12:00:00 AM [facility] F10.20 7350855 Alcoholism Problem 06/01/2020 12:00:00 AM ES T [facility]) 734178471 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 Problem 03/31/2020 12:00:00 AM EST [place] ([facility]) [id number] Nonexudative age-related macular degener ation (disorder) 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 Roth 01/19/2020 12:00:00 AM EDT [place] [facility] ([facility]) Office Visit, Est Pt., Level 3 FC 07/16/2019 12:00:00 AM EDT [facility] Office Visit, Est Pt., Level 4 PC 07/16/2019 12:00:00 AM EDT [facility]) Comprehensive eye exam established patient (Signi/Sep Eval. & Man.) Comprehensive eye exam established patient (Signi/Sep Eval. & Man.) 07/07/2019 12:00:00 AM EST [place] ([facility]) Scodi Retina, with interpretation and re port (WAIVER OF LIABILITY ON FILE (ABN)) Scodi Retina, with interpretation and re port (WAIVER OF LIABILITY ON FILE (ABN)) 07/07/2019 12:00:00 AM EST [place] (Alexis Atkins [facility]) Office Visit, Est Pt., Level 3 PC 06/05/2019 12:00:00 AM EST [facility] Social History Code Duration Value Status Description Data Source(s ) Smoking 03/31/2020 11:06:35 AM EST Ex-smoker (finding) complet ed Ex-smoker (finding) [facility] ([facility]) Smoking 03/31/2020 10:56:35 AM EST Ex-smoker (finding) complet ed Ex-smoker (finding) [place] ([facility]) Smoking 07/16/2019 12:00:00 AM EDT Never Smoker completed Never S moker [facility]CW[facility] ([facility]) Vital Signs ID Date Data Source UNK Name Value Range Interpretation Code Description Data Source(s) Diastolic blood pressure 75 mm[Hg] 75 mm[Hg] [facility] Systolic blood pressure 124 mm[Hg] 124 mm[Hg] e CW1 ([facility]) Body temperature [degF] eCW1 ([facility]) Respiratory rate 20 /min 20 /min eCW1 ([facility]) Heart rate 67 /min 67 /min eCW1 ([facility]) Body mass index (BMI) [Ratio] 31.75 kg/m2 31.75 kg/m2 [facility]) Body height [in_us] eCW1 ([facility]) Body weight Measured 185 [lb_av] 185 [lb_av] eC W1 ([facility]) Diastolic blood pressure 81 mm[Hg] 81 mm[Hg] eCW1 [facility]) Systolic blood pressure 183 mm[Hg] 183 mm[Hg] e CW1 ([facility]) Body temperature [degF] eCW1 ([facility]) Respiratory rate 22 /min 22 /min eCW1 ([facility]) Heart rate 58 /min 58 /min eCW1 ([facility]) Body mass index (BMI) [Ratio] 31.41 kg/m2 31.41 kg/m2 [facility]CW[facility] Body height [in_us] eCW1 ([facility]) Body weight Measured 183 [lb_av] 183 [lb_av] eC W1 [facility] Patient Treatment Plan of Care Planned Activity Planned Date Details Description Data Source (s) Lotemax SM 0.38% Ophthalmic Gel 07/07/2019 12:00:00 AM [facility] (Bryce Atkins [facility])
--- NOTE | 2020-06-21 22:07 | HPEPDOC ---
General Date of Admission Jun 21, 2020 at 15:22 Date of Service: Jun 21, 2020 Chief Complaint The patient is a 85-year-old male admitted with a reason for visit of Forehead Laceration,Syncope And Collapse. Source: Patient, Old records Exam Limitations: Clinical conditions, Mild cognitive slowing Timing/Duration: Day(s) History of Present Illness Patient is a 85 yo male with PMH of HTN, Diabetes, and elevated cholesterol presented to [facility] ED due to an unwitnessed fall. Patient reported that he was standing up from a recliner in the living room but the next thing he remember was that he was on the floor. Patient reported that he called 911 himself without family member coming by to his home. Hospitalist team called patient's son and he reported there's camera in the patient's house and he was able to see the patient fell at home and he called 911 for the patient. Patient denied prior fall event when he stood up, but thinks he may feel a little dizzy after he stood up. Patient denies any prodrome prior to the fall; denies any numbness, tingling, loss of sensation, chest pain, palpitation, dyspnea, nausea, or vomiting now. Home Medications Scheduled Furosemide (Furosemide) 40 Mg Tab, 40 MG PO DAILY, (Reported) Losartan Potassium (Losartan Potassium) 100 Mg Tab, 100 MG PO DAILY, (Reported) Metoprolol Tartrate (Metoprolol Tartrate) 25 Mg Tab, 25 MG PO DAILY, (Reported) Simvastatin (Simvastatin) 20 Mg Tablet, 20 MG PO DAILY, (Reported) Spironolactone (Spironolactone) 25 Mg Tablet, 25 NG PO BID, (Reported) Miscellaneous Medications [Med Rec Comment] , (Reported) UNABLE TO SPEAK WITH PATIENT USED LAST CLINIC VISIT/PHARMACY/EXTERNAL . Allergies Coded Allergies: lisinopril (Verified Allergy, Intermediate, cough, 06/21/20) naproxen (Verified Allergy, Intermediate, hives, 06/21/20) Past Medical History Medical History Diabetes Elevated cholesterol(dyslipidemia) Renal failure Vitamin D deficiency Surgical History Cataract left eye 2008 Exc cyst right upper arm 2012 Family History Pos for diabetes, heart disease, 1 son Social History * Smoker: Denies Alcohol: other (2 glasses of martini almost daily, denies binge drinking behavior or alcoholism) A-FIB/CHADSVASC A-FIB History Current/History of A-Fib/PAF?: No Review of Systems Constitutional: Denies: Chills, Fever Eyes: Reports: Other (Denies ) ENT: Denies: Dysphagia Skin: Denies: Rash Pulmonary: Denies: Dyspnea Cardiovascular: Denies: Chest Pain, Palpitations Gastrointestinal: Denies: Nausea, Vomiting, Abdominal Pain, Diarrhea, Constipation, Hematochezia Hematologic: Reports: Bruising (Chronic), Other Hematologic (nose bleed) Musculoskeletal: Reports: Other Symptoms (Patient denies pain anywhere in the body); Denies: Back Pain Neurological: Denies: Weakness, Numbness Psych: Reports: Mood Normal; Denies: Anxiety, Depression Physical Examination General Exam: Positive: Alert, No Acute Distress Eye Exam: Positive: EOMI; Negative: Conjunctiva & lids normal, Sclera icteric ENT Exam: Positive: Mucous membr. moist/pink, Other ENT (forhead laceration s/p suturing. Facial ecchymosis and swelling around forehead, nasal bridge, and midface); Negative: Atraumatic Neck Exam: Positive: Supple Chest Exam: Positive: Clear to auscultation, Normal air movement; Negative: Rales, Rhonchi, Wheezing Heart Exam: Positive: Rate Normal, Regular Rhythm Abdomen Exam: Positive: Normal bowel sounds, Soft; Negative: Tenderness Skin Exam: Positive: Breakdown, Other skin issue (ecchymosis, opening, swelling) Neuro Exam: Positive: Normal Speech, Strength at 5/5 X4 ext, Normal Tone, Cranial Nerves 3-12 NL, Other (able to carry normal conversation without problem) Psych Exam: Positive: Mental status NL, Mood NL, Oriented x 3, Other (memory appears to be grossly normal except for about the fall incident) Vital Signs Vital Signs Date Time Temp Pulse Resp B/P (MAP) Pulse Ox O2 Delivery O2 Flow Rate FiO2 06/21/20 18:48 86 18 98 Room Air 06/21/20 18:45 147/72 (97) 06/21/20 15:44 98.0 Laboratory Data Labs 24H Laboratory Tests 2 06/21/20 17:25: Immature Granulocyte % (Auto) 0.7, Neutrophils (%) (Auto) 89.2H, Lymphocytes (%) (Auto) 5.0L, Monocytes (%) (Auto) 4.7, Eosinophils (%) (Auto) 0.1, Basophils (%) (Auto) 0.3, Neutrophils # (Auto) 10.4H, Lymphocytes # (Auto) 0.6L, Monocytes # (Auto) 0.6, Eosinophils # (Auto) 0.0, Basophils # (Auto) 0.0, Nucleated Red Blood Cells % (auto) 0.0, Prothrombin Time 12.2, Prothromb Time International Ratio 0.89, Activated Partial Thromboplast Time 27.1, Anion Gap 11, Glomerular Filtration Rate 48.0, Calcium Level 8.9, Total Bilirubin 0.4, Direct Bilirubin < 0.1, Aspartate Amino Transf (AST/SGOT) 50H, Alanine Aminotransferase (ALT/SGPT) 24, Alkaline Phosphatase 74, Total Creatine Kinase 206, Creatine Kinase MB 1.7, Creatine Kinase MB Relative Index 0.83, Troponin I < 0.02, Total Protein 7.4, Albumin 3.6, Albumin/Globulin Ratio 0.9, Thyroid Stimulating Hormone (TSH) 1.180, Free Thyroxine 0.99 06/21/20 19:34: Coronavirus (COVID-19)(PCR) NEGATIVE, Influenza Type A (RT-PCR) NEGATIVE, Influenza Type B (RT-PCR) NEGATIVE, Respiratory Syncytial Virus (PCR) NEGATIVE CBC/BMP Laboratory Tests 06/21/20 17:25 Assessment/Plan 1. Syncope likely 2/2 orthostatic vs arrhythmia -unwitnessed fall, patient cannot recall the details of the fall -tele monitor, fall/seizure precaution, neuro checks -CT head showed nasal bone fracture, left frontal scalp swelling and bandage -echo, carotid US for syncope work up -Hold home med diuretics, Losartan, and Metoprolol 2. Fall 2/2 syncope -Fall precaution -orthostatic signs neg in clinic, however given patient's history and PMH of DM listed on prior clinic note, it is likely patient has fall from orthostatic hypotension from autonomic neuropathy -PT 3. Nasal bone fracture 2/2 fall -supportive care. oxygen therapy, vital signs - question hematoma versus polyp noted on maxillofacial CT 4. Forehead laceration -s/p suturing in ER -wound care, vital signs 5. Possible CKD -history of renal failure listed(unspecified) -creatinine is elevated at 1.48 but appears to be around baseline -s/p 1.5L NS bolus -continue to follow up BMP 6. History of diabetes -Patient has hx of diabetes however does not appear to be on diabetes meds outpt -Glucose checks, hypoglycemia protocols -consider add on SS insulin coverage if needed DVT prophylaxis: lovenox Plan / VTE VTE Prophylaxis Ordered?: Yes GME ATTESTATION GME ATTESTATION My faculty preceptor for this patient encounter was physically present during the encounter and was fully available. All aspects of the patient interview, examination, medical decision making process, and medical care plan development were reviewed and approved by the faculty preceptor. The faculty preceptor is aware and concurs with the plan as stated in the body of this note and will attest to such by his/her cosignature. ATTENDING NOTE I, Donnie Gallegos DO, performed a history and physical examination of the patient and discussed his management with the resident, Uri Hopkins DO. I reviewed the resident's note and agree with the documented findings and plan of care. URI HOPKINS DO Jun 21, 2020 22:07 DONNIE GALLEGOS DO Jun 22, 2020 08:28
[2020-06-21 22:45] VITALS: BP 178/88
[2020-06-21] MEDS ORDERED: NS 1,000 ML IV ONE (23:15)
[2020-06-21] MEDS ORDERED: amLODIPine 5 MG TAB PO ONE (23:15)
[2020-06-22 00:10] LABS: CK-MB VALUE MASS 1.9 NG/ML (<3.6); CPK CREATINE PHOSPHOKINASE 466 U/L (39-308); MB/CK RELATIVE INDEX 0.41 (< OR =4); TROPONIN I < 0.02 NG/ML (< 0.10)
[2020-06-22 00:21] VITALS: BP 163/83
[2020-06-22 01:15] VITALS: BP 164/86
[2020-06-22 01:58] LABS: PHOSPHORUS LEVEL 3.2 MG/DL (2.5-4.9)
[2020-06-22 02:07] LABS: ERYTHROCYTE SEDIMENTATION RATE 19 mm/hr (0-20)
[2020-06-22] MEDS ORDERED: GLUCAGON INJ 1MG VIAL SC PRN (05:00)
[2020-06-22] MEDS ORDERED: GLUCOSE 4GM CHEW TABLET PO PRN (05:00)
[2020-06-22] MEDS ORDERED: DEXTROSE 50% 50 ML SYRINGE IV PRN (05:00)
--- NOTE | 2020-06-22 05:03 | REPVR ---
PROCEDURE INFORMATION: Exam: US Duplex Bilateral Extracranial Arteries Exam date and time: 06/22/2020 4:02 AM Age: 85 years old Clinical indication: Syncope and collapse TECHNIQUE: Imaging protocol: Real-time Duplex ultrasound scan of the bilateral carotid and vertebral arteries combining hayden scale, color Doppler and spectral waveform analysis. Bilateral exam. COMPARISON: CT Spine,cervical w/o contrast 06/21/2020 3:53 PM FINDINGS: Right common carotid artery: Mild atherosclerotic plaque in the CCA. Normal waveforms. Right internal carotid artery: Bulky calcified plaque in the right proximal ICA. Normal velocities. Peak systolic velocity is 78 cm/s. Normal waveforms. Right ICA/CCA ratio: Normal at 0.8. Right external carotid artery: No stenosis in the origin. Right vertebral artery: Unremarkable. Antegrade flow. Left common carotid artery: Mild calcified plaque throughout the CCA. Left internal carotid artery: Calcified atherosclerotic plaque in the proximal ICA. Mild flow turbulence in the ICA. Normal velocities with peak systolic velocity of 96 cm/s. Left ICA/CCA ratio: Normal at 0.9. Left external carotid artery: Mild flow turbulence with elevated peak systolic velocity of 171 cm/s. Left vertebral artery: Unremarkable. Antegrade flow. IMPRESSION: 1. Mild atherosclerotic plaque in the common and internal carotid arteries without significant stenosis or occlusion. 2. 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 3. Antegrade vertebral artery flow. REFERENCES: SRU CRITERIA. The degree of internal carotid artery stenosis is based on criteria defined by the Society of Radiologists in Ultrasound (SRU). Normal is no stenosis. Mild is less than 50% stenosis. Moderate is 50-69% stenosis. Severe is greater than 69% stenosis to near occlusion. Near occlusion is a markedly narrowed lumen. Total occlusion is no detectable patent lumen. Electronically signed by: Marshall Camarena On 06/22/2020 05:03:01 AM
[2020-06-22 06:00] VITALS: BP 160/86
--- NOTE | 2020-06-22 07:44 | ECGEPIP ---
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
[2020-06-22 07:47] LABS: BASO % 0.4 % (0.0-1.0); EOS # 0.1 10^3/uL (0.0-0.5); EOS % 1.8 % (0.0-3.0); HEMATOCRIT 34.6 % (42.0-52.0); HEMOGLOBIN 11.1 g/dl (13.5-17.5); LYMPH # 1.1 10^3/uL (1.5-5.0); LYMPH % 16.4 % (24.0-44.0); MEAN CORPUSCULAR HEMOGLOBIN 32.6 pg (27.0-33.0); MEAN CORPUSCULAR HGB CONC 32.1 g/dl (32.0-36.5); MEAN CORPUSCULAR VOLUME 101.5 fl (80.0-96.0); MONO % 14.3 % (2.0-8.0); NEUTROPHILS # 4.5 10^3/uL (1.5-8.5); NEUTROPHILS % 66.7 % (36.0-66.0); PLATELET COUNT, AUTOMATED 168 10^3/uL (150-450); RED BLOOD COUNT 3.41 10^6/uL (4.30-6.10); WHITE BLOOD COUNT 6.7 10^3/uL (4.0-10.0)
[2020-06-22 08:00] LABS: CALCIUM LEVEL 8.8 MG/DL (8.8-10.2); CREATININE FOR GFR 1.32 MG/DL (0.70-1.30); GLOMERULAR FILTRATION RATE 54.7 (>35); POTASSIUM SERUM 3.7 MEQ/L (3.5-5.1)
[2020-06-22] MEDS: ENOXAPARIN 40MG/0.4ML SYRINGE (J1650 PER 10MG) SC SCH (08:21)
[2020-06-22] MEDS: SIMVASTATIN 20 MG TAB PO SCH (08:21)
[2020-06-22 10:40] VITALS: BP 137/62
--- NOTE | 2020-06-22 10:40 | IPN ---
PROGRESS NOTE DATE: 06/22/2020 SUBJECTIVE: The patient is seen and examined at the bedside. Chart has been reviewed. The patient denies dizziness, lightheadedness, chest pain, pressure, tightness, shortness of breath, or palpitations. No recurrent episodes of syncope in the hospital. OBJECTIVE: VITAL SIGNS: Temperature 97.6, pulse 75, respiratory rate 20, blood pressure 160/86, 96% on room air. GENERAL APPEARANCE: Awake, alert, and oriented x3. HEENT: Laceration on the left forehead with sutures. The patient has ecchymosis under the right eye. He is awake, alert, and oriented to person, place, and time. Answering questions appropriately. Speech is fluent. Face is symmetric. Tongue is midline. NECK: No JVD. No thyromegaly. No cervical lymphadenopathy. LUNGS: Clear to auscultation. No wheezing, rales, or rhonchi. HEART: S1, S2 sinus rhythm. No murmurs, rubs, or gallops. ABDOMEN: Soft, nontender, and nondistended with positive bowel sounds. EXTREMITIES: No cyanosis or clubbing. SKIN: Warm, dry, and well-perfused. LABORATORY DATA: White count 6.7, hemoglobin 11, hematocrit 34, platelet count 168,000. Sodium 139, potassium 3.7, chloride 104, bicarb 28, BUN 24, creatinine 1.32 with previous creatinine of 1.48, and glucose of 69. MICROBIOLOGY: Blood cultures 06/22 pending. IMAGING DATA: Maxillofacial CT 06/21/2020, slightly comminuted depressed fracture of the nasal bone with soft tissue fullness in the anterior aspect of the right inferior nasal turbinates. Question hematoma versus polyp. No other fracture is seen. CT of the head 06/21/2020, no acute intracranial abnormality. Nasal bone fracture. Left frontal scalp swelling and bandage. Vascular calcification and diffuse atrophy. Renal ultrasound 06/21/2018, two cysts in each kidney nonobstructive renal calculi. No hydronephrosis. No solid mass. Cervical spine CT 06/21/2020, degenerative spondylosis changes. No fracture or other acute bony abnormality. Chest x-ray 06/21/2020, no active disease. Carotid Doppler 06/22/2020, mild plaque in the common and internal carotid arteries without significant stenosis or occlusion. Nonocclusive stenosis at the left ECA origin. Antegrade vertebral artery flow. ASSESSMENT AND PLAN: This is an 85-year-old male who lives alone with history of hypertension, diabetes, and hypercholesterolemia who had a syncopal episode with laceration of the left forehead who was able to call 911 himself. 1. Syncope. Telemetry was unremarkable. The patient was not orthostatic. He did have a nasal fracture on a CT of maxillofacial done in the ER. The patient's diuretics, losartan, and metoprolol had been held. Workup included MRI of the brain, MRA of the carotids, MRA of the brain. The patient will need a Holter monitor as an outpatient. Physical therapy (PT), occupational therapy (OT), ARU screen. He lives alone and PFS is consulted to assist with disposition. Patient says that he manages well by himself, but does not have immediate family in the area. 2. Nasal bone fracture versus hematoma. Currently stable. Will need to empirically treat with Augmentin or amoxicillin to decrease risk of infection. 3. Forehead laceration status post suturing in the ER. Discontinue sutures per ER recommendations by primary care physician as outpatient. 4. Chronic kidney disease (CKD) stage III. Appears to be at baseline creatinine. 5. History of type 2 diabetes currently on fingerstick q. a.c and h.s. Consistent carb diet. 6. Disposition: Await echocardiogram report for syncopal episode and PT clearance.
[2020-06-22] MEDS: LOSARTAN 50MG TABLET PO SCH (12:02)
[2020-06-22] MEDS: METOPROLOL TART 25 MG TABLET PO SCH (12:03)
[2020-06-22 13:38] VITALS: BP 135/58
--- NOTE | 2020-06-22 21:06 | ECGEPIP ---
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
[2020-06-22 22:00] VITALS: BP 148/73
[2020-06-23 06:00] VITALS: BP 141/71
[2020-06-23 06:49] LABS: BASO % 0.8 % (0.0-1.0); EOS # 0.4 10^3/uL (0.0-0.5); EOS % 7.7 % (0.0-3.0); HEMATOCRIT 35.1 % (42.0-52.0); HEMOGLOBIN 11.3 g/dl (13.5-17.5); LYMPH % 18.8 % (24.0-44.0); MEAN CORPUSCULAR HEMOGLOBIN 33.2 pg (27.0-33.0); MEAN CORPUSCULAR HGB CONC 32.2 g/dl (32.0-36.5); MEAN CORPUSCULAR VOLUME 103.2 fl (80.0-96.0); MONO # 0.8 10^3/uL (0.0-0.8); MONO % 14.1 % (2.0-8.0); NEUTROPHILS # 3.1 10^3/uL (1.5-8.5); NEUTROPHILS % 57.8 % (36.0-66.0); PLATELET COUNT, AUTOMATED 171 10^3/uL (150-450); WHITE BLOOD COUNT 5.3 10^3/uL (4.0-10.0)
[2020-06-23 07:05] LABS: CALCIUM LEVEL 8.4 MG/DL (8.8-10.2); CREATININE FOR GFR 1.37 MG/DL (0.70-1.30); GLOMERULAR FILTRATION RATE 52.4 (>35); POTASSIUM SERUM 4.1 MEQ/L (3.5-5.1)
[2020-06-23 08:15] VITALS: BP 127/55
[2020-06-23] MEDS: METOPROLOL TART 25 MG TABLET PO SCH (08:15)
[2020-06-23] MEDS: SIMVASTATIN 20 MG TAB PO SCH (08:15)
[2020-06-23] MEDS: ENOXAPARIN 40MG/0.4ML SYRINGE (J1650 PER 10MG) SC SCH (08:16)
[2020-06-23] MEDS: LOSARTAN 50MG TABLET PO SCH (08:16)
[2020-06-23] MEDS ORDERED: AMOXICILLIN 500 MG CAP PO SCH (09:00)
[2020-06-23] MEDS ORDERED: AMOX500C PO (09:58)
--- NOTE | 2020-06-23 11:58 | DS.PDOC ---
Discharge Summary General Date of Admission Jun 22, 2020 at 10:08 Date of Discharge 06/23/20 Discharge Summary Addendum to discharge summary: Discharge diagnoses: closed head injury Vital Signs/I&Os Vital Signs Date Time Temp Pulse Resp B/P (MAP) Pulse Ox O2 Delivery O2 Flow Rate FiO2 06/23/20 08:15 74 127/55 06/23/20 06:00 98.0 20 98 06/22/20 13:38 Room Air I&O- Last 24 Hours up to 6 AM 06/23/20 06:00 Intake Total 1920 ml Output Total 450 ml Balance 1470 ml Laboratory Data Labs 24H Laboratory Tests 2 06/22/20 12:37: Urine Color YELLOW, Urine Appearance CLEAR, Urine pH 6.0, Urine Specific [place] 1.006, Urine Protein NEGATIVE, Urine Glucose (UA) NEGATIVE, Urine Ketones NEGATIVE, Urine Blood NEGATIVE, Urine Nitrite NEGATIVE, Urine Bilirubin NEGATIVE, Urine Urobilinogen 0.2, Urine Leukocyte Esterase NEGATIVE, Urine WBC (Auto) 0, Urine RBC (Auto) 0, Urine Hyaline Casts (Auto) 0, Urine Bacteria (Auto) NEGATIVE, Urine Squamous Epithelial Cells 0, Urine Sperm (Auto) 06/23/20 05:50: Immature Granulocyte % (Auto) 0.8, Neutrophils (%) (Auto) 57.8, Lymphocytes (%) (Auto) 18.8L, Monocytes (%) (Auto) 14.1H, Eosinophils (%) (Auto) 7.7H, Basophils (%) (Auto) 0.8, Neutrophils # (Auto) 3.1, Lymphocytes # (Auto) 1.0L, Monocytes # (Auto) 0.8, Eosinophils # (Auto) 0.4, Basophils # (Auto) 0.0, Nucleated Red Blood Cells % (auto) 0.0, Anion Gap 5L, Glomerular Filtration Rate 52.4, Calcium Level 8.4L CBC/BMP Laboratory Tests 06/23/20 05:50 Microbiology Microbiology 06/22/20 Blood Culture - Preliminary, Resulted No growth after 24 hours . All specim... 06/22/20 Blood Culture - Preliminary, Resulted No growth after 24 hours . All specim... 06/22/20 Blood Culture - Preliminary, Resulted No growth after 24 hours . All specim... 06/22/20 Blood Culture - Preliminary, Resulted No growth after 24 hours . All specim... Discharge Medications Scheduled Amoxicillin (Amoxicillin) 500 Mg Capsule, 500 MG PO BID Furosemide (Furosemide) 40 Mg Tab, 40 MG PO DAILY, (Reported) Losartan Potassium (Losartan Potassium) 100 Mg Tab, 100 MG PO DAILY, (Reported) Metoprolol Tartrate (Metoprolol Tartrate) 25 Mg Tab, 25 MG PO DAILY, (Reported) Simvastatin (Simvastatin) 20 Mg Tablet, 20 MG PO DAILY, (Reported) Spironolactone (Spironolactone) 25 Mg Tablet, 25 NG PO BID, (Reported) Miscellaneous Medications [Med Rec Comment] , (Reported) UNABLE TO SPEAK WITH PATIENT USED LAST CLINIC VISIT/PHARMACY/EXTERNAL . Allergies Coded Allergies: lisinopril (Verified Allergy, Intermediate, cough, 06/21/20) naproxen (Verified Allergy, Intermediate, hives, 06/21/20) BRANDY HOWARD MD Jun 23, 2020 11:57
--- NOTE | 2020-06-23 12:24 | DSES ---
DISCHARGE SUMMARY DATE OF ADMISSION: 06/21/2020 DATE OF DISCHARGE: 06/22/2020 PRIMARY DISCHARGE DISAGNOSES: 1. Syncope. 2. Nasal bone fracture. 3. Forehead laceration requiring suturing. 4. Chronic kidney disease stage 3. 5. Type-2 diabetes 6. Closed head injury s/p syncopal episode DISCHARGE MEDICATIONS: 1. Amoxicillin 500 mg twice a day for 10 days for nasal fracture. 2. Lasix 40 daily. 3. Losartan 100 daily. 4. Metoprolol 25 daily. 5. Simvastatin 20 daily. 6. Spironolactone 25 mg twice a day. DISCHARGE INSTRUCTIONS: 1. Immediate follow up with primary care physician within 5 days of hospital discharge. 2. Patient is referred to Dr. Pfeiffer for a Holter monitor regarding syncopal episode prior to hospital discharge. 3. Patient is to his blood pressure and pulse prior to taking his home medications. 4. He is being sent home with services. HISTORY AND HOSPITAL COURSE: This is an 85-year-old male who lives alone, was in his usual state of health until 06/21/20 when he was in his recliner in the living room and had a syncopal episode. Patient called 911 himself, but felt a little dizzy standing up. In the ER he was not orthostatic. CT of the head was negative for acute intracranial hemorrhage. Maxillofacial CT showed nasal fracture. Patient was started on amoxicillin 500 twice a day for prophylaxis due to nasal fracture. Patient had no recurrent syncopal episodes during this admission. His EKG was sinus rhythm at 83 with first degree AV block, atrial septal infarct, nonspecific ST-T changes. Patient was anemic, but stable with hemoglobin of 12, hematocrit of 37 with no overt GI bleed. He has chronic kidney disease. His baseline creatinine is 1.32 to 1.4. Patient was given I.V. fluids with lactic acidosis 2.2 improving to 0.9 after I.V. fluid. Troponin was negative at less than 0.02. Urinalysis had no infection. Coronavirus 19 and respiratory panel including influenza and respiratory syncytial virus were negative. Four sets of blood cultures were all negative. Cervical spine CT had no acute fracture. There is degenerative spondylosis changes with no fracture or acute abnormality. Chest x-ray had no active disease. Carotid Dopplers showed mild atherosclerotic plaque in the common internal carotid arteries without significant stenosis or occlusion, non-occlusive stenosis of the left ECA origin and antegrade vertebral blood flow noted. Patient was seen by physical therapy who recommended home services. Patient is discharged in stable condition to have a Holter monitor placed and for home physical therapy to be continued at home. PHYSICAL EXAMINATION ON DISCHARGE: Temperature 98, pulse 78, respiratory rate 20, blood pressure 141/71, 98% on room air. General: Patient is awake, alert, oriented to person, place and time. HEENT: He has a laceration with sutures in the left forehead, bilateral periorbital hematoma, no signs of cellulitis. Patient has swelling on the nasal bridge due to nasal fracture. Lungs: Clear to auscultation, no wheezes, rhonchi or rales. Heart: S1 and S2, sinus rhythm, no murmurs, rubs or gallops. Abdomen: Soft, nontender, nondistended, positive bowel sounds. Extremities: No cyanosis or clubbing. LABORATORY DATA ON DISCHARGE: White count 5.3, hemoglobin 11, hematocrit 35, platelet count 171. Sodium 141, potassium 4.1, chloride 106, bicarbonate 30, BUN 21, creatinine 1.37, glucose 89. Four sets of blood cultures 06/22 negative. IMAGING STUDIES: Maxillofacial CT: Slightly comminuted depressed fracture of the nasal bone. There is soft tissue fullness of the anterior aspect of the right inferior nasal turbinate question hematoma versus polyp. CT of the head 06/21/20: No acute intracranial abnormality, nasal bone fracture, left frontal scalp swelling and bandage, vascular calcification, diffuse atrophy. Cervical spine CT: Degenerative spondylosis changes, no fracture or other acute bony abnormality. Chest x-ray 06/21/20: No active disease. Carotid Dopplers 06/22/20: Mild atherosclerotic plaque in the common internal carotid arteries without significant stenosis or occlusion, non-occlusive stenosis of the left ECA origin antegrade vertebral artery flow. TIME SPENT ON DISCHARGE: 30 minutes. MARGIE
== END 2020-06-23 13:25 | disposition home health service (06) | DRG 914 ==
LOC: EDBD 15:21 → M ED 15:21 → M ED INP 15:22 → M MSPAV 22:44 → OBSVTOIN 06-22 10:08
PROVIDERS: ADMIT Internal Medicine; ATTEND General Practice
DX: S09.8XXA Other specified injuries of head, initial encounter (principal); R55 Syncope and collapse; S01.81XA Laceration without foreign body of other part of head, initial encounter; S02.2XXA Fracture of nasal bones, initial encounter for closed fracture; N18.30 Chronic kidney disease, stage 3 unspecified; E11.22 Type 2 diabetes mellitus with diabetic chronic kidney disease; I10 Essential (primary) hypertension; Z79.899 Other long term (current) drug therapy; W18.30XA Fall on same level, unspecified, initial encounter; Z88.8 Allergy status to other drugs, medicaments and biological substances; E78.5 Hyperlipidemia, unspecified; E55.9 Vitamin D deficiency, unspecified

== ENCOUNTER → 2020-10-11 | Outpatient (REF) | payer MEDICARE ==
[~2020-10-11] MED LIST changes: +AMOX500C PO; +ECOT81TA5 PO; +MED REC COMMENT; +SIMV20TA22 PO; +SPIR-10 PO
[2020-10-11 12:07] LABS: HEMATOCRIT 40.6 % (42.0-52.0); HEMOGLOBIN 12.4 g/dl (13.5-17.5); MEAN CORPUSCULAR HEMOGLOBIN 30.3 pg (27.0-33.0); MEAN CORPUSCULAR HGB CONC 30.5 g/dl (32.0-36.5); MEAN CORPUSCULAR VOLUME 99.3 fl (80.0-96.0); PLATELET COUNT, AUTOMATED 174 10^3/uL (150-450); RED BLOOD COUNT 4.09 10^6/uL (4.30-6.10); WHITE BLOOD COUNT 4.3 10^3/uL (4.0-10.0)
[2020-10-11 12:55] LABS: ALBUMIN 3.3 GM/DL (3.2-5.2); BILIRUBIN,TOTAL 0.6 MG/DL (0.2-1.0); CALCIUM LEVEL 8.9 MG/DL (8.8-10.2); CHOLESTEROL RISK RATIO 1.67 (<5); CREATININE FOR GFR 1.34 MG/DL (0.70-1.30); GLOMERULAR FILTRATION RATE 53.8 (>35); POTASSIUM SERUM 3.8 MEQ/L (3.5-5.1); TOTAL 25(OH) VITAMIN D 16.7 NG/ML (30.0-100.0); TOTAL PROTEIN 6.8 GM/DL (6.4-8.2)
[2020-10-11 13:11] LABS: MAU/CREAT RATIO 655.1 MCG/MG (0.0-30.0)
[2020-10-13 07:38] LABS: PERCENT SATURATION 12.6 % (19.7-50.0)
[2020-10-13 11:22] LABS: FOLATE 8.8 NG/ML (>5.4)
== END ==
LOC: M SFHCCLAY 08:23
PROVIDERS: ATTEND Nurse Practitioner Family
DX: I12.9 Hypertensive chronic kidney disease with stage 1 through stage 4 chronic kidney disease, or unspecified chronic kidney disease (principal); E11.22 Type 2 diabetes mellitus with diabetic chronic kidney disease; E78.49 Other hyperlipidemia; E55.9 Vitamin D deficiency, unspecified; Z79.899 Other long term (current) drug therapy

== ENCOUNTER → 2020-10-13 | Outpatient (REF) | payer MEDICARE | LOC: M SFHCCLAY 07:16 | PROVIDERS: ATTEND Nurse Practitioner Family | DX: D64.9 Anemia, unspecified (principal) ==

== ENCOUNTER → 2021-02-02 | Outpatient (REF) | payer MEDICARE | LOC: M LAB REF 17:25 | PROVIDERS: ATTEND Nurse Practitioner Family | DX: E83.42 Hypomagnesemia (principal) ==

== ENCOUNTER → 2021-02-17 | Outpatient (REF) | payer MEDICARE ==
[2021-02-17 16:57] LABS: CREATININE FOR GFR 1.76 MG/DL (0.70-1.30); GLOMERULAR FILTRATION RATE 39.3 (>35); POTASSIUM SERUM 4.4 MEQ/L (3.5-5.1)
== END ==
LOC: M LABDRAWC 15:55
PROVIDERS: ATTEND Internal Medicine Cardiovascular Disease
DX: N28.9 Disorder of kidney and ureter, unspecified (principal)

== ENCOUNTER → 2021-04-04 | Outpatient (REF) | payer MEDICARE ==
[~2021-04-04] MED LIST changes: +LOSA100T45 PO; -LOSA100T50 PO
[2021-04-04 16:36] LABS: CALCIUM LEVEL 8.5 MG/DL (8.8-10.2); CREATININE FOR GFR 1.69 MG/DL (0.70-1.30); GLOMERULAR FILTRATION RATE 41.2 (>35)
== END ==
LOC: M SFHCCLAY 11:37
PROVIDERS: ATTEND Nurse Practitioner Family
DX: N18.31 Chronic kidney disease, stage 3a (principal)
CPT/HCPCS: 80048; 90682; G0008; G0463